=== PATIENT | female | born 1965 | race African-American/Black ===

== ENCOUNTER 2019-08-21 02:13 | Inpatient (IN) ==
[2019-08-21] MEDS ORDERED: ZOSYN 4.5 GM in NS 100 ML IV ONE (02:44)
[2019-08-21] MEDS ORDERED: NS 1,000 ML IV ONE ×4 (02:44→09:00)
[2019-08-21] MEDS ORDERED: MORPHINE IV ONE (02:44)
[2019-08-21] MEDS ORDERED: ZOFRAN IV ONE (02:44)
[2019-08-21 03:06] LABS: URINE SOURCE CATH
[2019-08-21 03:09] LABS: BILIRUBIN URINE NEGATIVE (NEGATIVE); BLOOD URINE SMALL (NEGATIVE); COLOR YELLOW; GLUCOSE URINE NEGATIVE (NEGATIVE); KETONE URINE TRACE mg/dL (NEGATIVE); LEUKOCYTES URINE SMALL (NEGATIVE); NITRITE URINE NEGATIVE (NEGATIVE); PH URINE 6.5; PROTEIN URINE 100 mg/dL (NEGATIVE); SP GRAVITY URINE 1.027; TURBIDITY URINE HAZY (CLEAR); UROBILINOGEN URINE 2 mg/dL (NORMAL)
--- NOTE | 2019-08-21 03:10 | PROVIDER DOCUMENTATION ---
HPI-Fever - General Chief Complaint: Weakness Stated Complaint: v/weakness Time Seen by Provider: 08/21/19 02:36 Source: patient Allergies/Adverse Reactions: Patient Allergies Allergy/AdvReac Type Severity Reaction Status Date / Time ibuprofen AdvReac HIVES Verified 01/10/17 07:13 NSAIDS (Non-Steroidal AdvReac HIVES Verified 01/10/17 07:13 Anti-Inflamma Home Medications: Home Medication List Medication Instructions Recorded Confirmed Last Taken Type Lisinopril [Zestril] 10 mg PO DAILY #30 tablet 11/28/16 08/21/19 01/09/17 08:00 Rx Sulfamethoxazole/Trimethoprim 1 each PO Q12HR #10 tablet 01/10/17 08/21/19 Unknown Rx [Bactrim Ds Tablet] Carisoprodol [Soma] 1 tab PO BID 01/20/17 08/21/19 Unknown History Hydrocodone/Acetaminophen [Lortab 1 tab PO DIRECTED PRN 01/20/17 08/21/19 Unknown History 7.5-325 mg Tablet] - History of Present Illness-Fever Nature of Presenting Problem: Patient complains of gradual onset of fever, chills, malaise, abdominal pain and vomiting for 3 days. Symptoms begine in ER 3 days ago when she was sitting with her who was admitted for sepsis at that time. States continued to worsen since then. No has become some weak she has nearly passed out. No diarrhea. No vomiting blood or blood in stools. No cough. Slight sore throat Fever Severity/Quality: reports: greater than 100.5 F Onset/Duration: reports: gradual, 3 days ago Timing: reports: still present, constant, getting worse Severity: reports: moderate Context: reports: none, other ( is in ICU at [facility] with Sepsis.). denies: decreased mental status Recent Illness?: reports: none Fever Therapy COMMUNITY LIAISON OFFICER: Initiated none Cognitive Baseline: alert, oriented x3 Modifying Factors: improves with: rest. worse with: movement, vomiting Associated Symptoms: reports: diaphoresis, dizziness, fever/chills, loss of appetite, malaise, muscle aches, nausea, vomiting, weakness, trouble walking. denies: chest pain, headaches, sinus congestion/drainage, seizure, sensory/motor loss, swelling/mass in abdomen, syncope Similar Symptoms Previously?: No Recently seen or treated by another doctor?: No - Glascow Coma Score Best Eye Response ([place]): (4) open spontaneously Best Verbal Response ([place]): (5) oriented Best Motor Response ([place]): (6) obeys commands Review of Systems - Adult - REVIEW OF SYSTEMS - ADULT Constitutional: reports: see HPI, chills, fever, fatique. denies: night sweats, weight gain, weight loss Eyes: reports: no symptoms reported Ears, Nose, Mouth & Throat: reports: no symptoms reported Cardiovascular: reports: no symptoms reported Respiratory: reports: see HPI, cough, dyspnea on exertion, shortness of breath (mild). denies: chronic cough, excessive sputum production, hemoptysis, pleurisy, wheezing Gastrointestinal: reports: see HPI, abdominal pain, nausea, poor appetite, vomiting. denies: hematemesis, constipation, diarrhea, difficulty swallowing, frequent heartburn, rectal bleeding Genitourinary: reports: no symptoms reported Musculoskeletal: reports: no symptoms reported Integumentary: reports: no symptoms reported Neurological: reports: no symptoms reported Psychiatric: reports: no symptoms reported Endocrine: reports: no symptoms reported Hematologic/Lymphatic: reports: no symptoms reported Allergic/Immunologic: reports: no symptoms reported All Other Systems: Reviewed and Negative Past History - Adult - PAST MEDICAL HISTORY-ADULT Review of Records: reports: Old Records Reviewed, Nursing Assessment Review, Medications Reviewed, Social history reviewed & non-contributory. Major Childhood Illnesses: reports: denies history Cardiovascular: reports: HTN Respiratory: reports: denies history Gastrointestinal: reports: denies history Obstetrical/Gynecological: reports: denies history Genitourinary: reports: denies history Musculoskeletal: reports: denies history Neurological: reports: denies history Endocrine/Immune: reports: denies history Other Conditions: reports: denies history - PRIOR SURGERIES/PROCEDURES Surgical/Procedure History: reports: reviewed, not pertinent - IMMUNIZATION STATUS Childhood Immunizations: See Nurse Assessment Flu Vaccine: See Nurse Assessment - FAMILY HISTORY Family History: reviewed, not pertinent, other ( has sepsis now) - SOCIAL HISTORY Smoking: cigarettes, less than 1 pack/day Substance Use: none/never Alcohol Use Frequency: 5-6 times a week Number of drinks per typical drinking period:: 3-4 drinks Living Situation: family Physical Exam-General - PHYSICAL EXAM-ADULT Initial Vital Signs Reviewed: Yes (Afebrile, sl tachycardic, sl tachypneic, hypotensive, ill appearing) - CONSTITUTIONAL General Appearance: alert, no apparent distress, lethargic. negative: appears well - EYES Eyes: PERRL/EOMI, pink conjunctivae - HEAD, EARS, NOSE, MOUTH & THROAT HENMT: normocephalic/atraumatic, TMs normal. negative: moist mucous membranes (dry), hearing deficit - NECK Neck: non-tender, full range of motion, supple, normal inspection - RESPIRATORY Respiratory: chest non-tender, lungs clear, normal breath sounds, no pleuratic chest pain, no respiratory distress, no accessory muscle use - CARDIOVASCULAR Cardiovascular: normal peripheral pulses, regular rate, rhythm, no edema, no gallop, no JVD, no murmur - GASTROINTESTINAL (ABDOMEN) Abdominal Exam: soft, no pulsatile mass, abnormal bowel sounds (hypoactive), tenderness (diffuse, especially bilateral flanks). negative: guarding, rigid, mass, McBurney's point tenderness, Benoit's sign, Rovsing's sign - LYMPHATIC Lymphatic: no adenopathy - MUSCULOSKELETAL Back Exam: normal inspection, decreased range of motion Extremity: normal range of motion, non-tender, normal gait, pedal edema (1+ bilATERAL) - SKIN Integumentary: normal color, normal turgor, warm/dry - NEUROLOGIC Neurologic: fire ranger II-XII nml as tested, grossly normal, no motor/sensory deficits, motor weakness (generally weak) - PSYCHIATRIC Psych/Mental Status: normal mood/affect, normal thought content, normal thought process, oriented x 3 Progress - PLAN OF CARE/RESULTS Progress/Plan/Lab Results: Vital Signs - 8 hr 08/21/19 02:17 08/21/19 02:49 08/21/19 04:27 Temperature 97.7 F Pulse Rate 97 H 85 79 Respiratory Rate 20 17 18 Blood Pressure 92/60 105/72 91/61 O2 Sat by Pulse Oximetry 98 100 Laboratory Results - last 24 hr 08/21/19 08/21/19 08/21/19 02:40 02:40 02:40 WBC 16.91 H RBC 3.98 L Hgb 12.4 Hct 36.8 L MCV 92.5 MCH 31.2 H MCHC 33.7 RDW Std Deviation 12.7 Plt Count 295 MPV 10.6 H Immature Gran % (Auto) 0.4 Neut % (Auto) 69.5 Lymph % (Auto) 19.8 L [place] % (Auto) 9.3 Eos % (Auto) 0.3 Baso % (Auto) 0.7 Immature Gran # (Auto) 0.07 H Neut # (Auto) 11.77 H Lymph # (Auto) 3.34 [place] # (Auto) 1.57 H Eos # (Auto) 0.05 Baso # (Auto) 0.11 Segmented Neutrophils 73 Band Neutrophils 1 Lymphocytes 19 L Monocytes 4 Atypical Lymphocytes 3.0 Large Platelets OCCASIONAL Poikilocytosis OCCASIONAL Stomatocytes OCCASIONAL PT 14.7 INR 1.09 PTT (Actin FS) 30.4 Sodium 134 L Potassium 3.0 L Chloride 92 L Carbon Dioxide 26 Anion Gap 17 BUN 11 Creatinine 1.0 H Estimated GFR/1.73 m2 58 BUN/Creatinine Ratio 11 Glucose 129 H Calculated Osmolality 269 Calcium 9.1 Magnesium 2.6 Total Bilirubin 0.30 AST 18 ALT 10 Alkaline Phosphatase 123 H Creatine Kinase 130 Troponin T High Sens Qsu-[id number]-Jtvgtrrnnqo Pept Total Protein 7.4 Albumin 3.6 Globulin 4.0 Albumin/Globulin Ratio 1.0 Lipase 36 Plasma Lactate Urine Source Urine Color Urine Turbidity Urine pH Ur Specific [place] Urine Protein Ur Glucose (Stick) Ur Ketones (Stick) Urine Blood Urine Nitrite Urine Bilirubin Urobilinogen Dipstick Urine Leukocytes Urine WBC (Auto) Urine RBC (Auto) U Epithel Cells (Auto) Urine Bacteria (Auto) Urine Crystals Small Round Cells Urine Casts Urine Yeast-like Cells Plasma/Serum Ethyl Alc Influenza A (Rapid) Influenza B (Rapid) 08/21/19 08/21/19 08/21/19 02:40 02:40 02:40 WBC RBC Hgb Hct MCV MCH MCHC RDW Std Deviation Plt Count MPV Immature Gran % (Auto) Neut % (Auto) Lymph % (Auto) [place] % (Auto) Eos % (Auto) Baso % (Auto) Immature Gran # (Auto) Neut # (Auto) Lymph # (Auto) [place] # (Auto) Eos # (Auto) Baso # (Auto) Segmented Neutrophils Band Neutrophils Lymphocytes Monocytes Atypical Lymphocytes Large Platelets Poikilocytosis Stomatocytes PT INR PTT (Actin FS) Sodium Potassium Chloride Carbon Dioxide Anion Gap BUN Creatinine Estimated GFR/1.73 m2 BUN/Creatinine Ratio Glucose Calculated Osmolality Calcium Magnesium Total Bilirubin AST ALT Alkaline Phosphatase Creatine Kinase Troponin T High Sens < 6 Akp-L-Pumhgzhhfoi Pept 176 Total Protein Albumin Globulin Albumin/Globulin Ratio Lipase Plasma Lactate Urine Source Urine Color Urine Turbidity Urine pH Ur Specific [place] Urine Protein Ur Glucose (Stick) Ur Ketones (Stick) Urine Blood Urine Nitrite Urine Bilirubin Urobilinogen Dipstick Urine Leukocytes Urine WBC (Auto) Urine RBC (Auto) U Epithel Cells (Auto) Urine Bacteria (Auto) Urine Crystals Small Round Cells Urine Casts Urine Yeast-like Cells Plasma/Serum Ethyl Alc Influenza A (Rapid) Influenza B (Rapid) 08/21/19 08/21/19 08/21/19 02:40 02:55 04:22 WBC RBC Hgb Hct MCV MCH MCHC RDW Std Deviation Plt Count MPV Immature Gran % (Auto) Neut % (Auto) Lymph % (Auto) [place] % (Auto) Eos % (Auto) Baso % (Auto) Immature Gran # (Auto) Neut # (Auto) Lymph # (Auto) [place] # (Auto) Eos # (Auto) Baso # (Auto) Segmented Neutrophils Band Neutrophils Lymphocytes Monocytes Atypical Lymphocytes Large Platelets Poikilocytosis Stomatocytes PT INR PTT (Actin FS) Sodium Potassium Chloride Carbon Dioxide Anion Gap BUN Creatinine Estimated GFR/1.73 m2 BUN/Creatinine Ratio Glucose Calculated Osmolality Calcium Magnesium Total Bilirubin AST ALT Alkaline Phosphatase Creatine Kinase Troponin T High Sens Ctw-B-Izfmycquavb Pept Total Protein Albumin Globulin Albumin/Globulin Ratio Lipase Plasma Lactate 0.9 Urine Source CATH Urine Color YELLOW Urine Turbidity HAZY Urine pH 6.5 Ur Specific [place] 1.027 Urine Protein 100 A Ur Glucose (Stick) NEGATIVE Ur Ketones (Stick) TRACE A Urine Blood SMALL A Urine Nitrite NEGATIVE Urine Bilirubin NEGATIVE Urobilinogen Dipstick 2 A Urine Leukocytes SMALL A Urine WBC (Auto) <10 Urine RBC (Auto) <10 U Epithel Cells (Auto) <10 Urine Bacteria (Auto) 4+ Urine Crystals NONE SEEN Small Round Cells RENAL PRESENT Urine Casts GRANULAR PRESENT Urine Yeast-like Cells NONE SEEN Plasma/Serum Ethyl Alc Influenza A (Rapid) NEGATIVE Influenza B (Rapid) NEGATIVE Orders Category Date Time Status Cardiac Monitoring DIRECTED Care 08/21/19 02:42 IV Insertion ORDERED Care 08/21/19 02:42 Completed Nursing- Obtain EKG once Care 08/21/19 02:43 CHEST-1 VIEW [RAD] Stat Exams 08/21/19 02:[address] ABD/PELVIS W/IV CONT ONLY [CT] Stat Exams 08/21/19 02:43 Taken ALCOHOL BLOOD Stat Lab 08/21/19 02:40 Completed BLOOD CULTURE [BLDCUL] Stat Lab 08/21/19 02:43 Ordered CBC WITH DIFF [HEME] Stat Lab 08/21/19 02:40 Completed CK PROFILE [SP CHEM] Stat Lab 08/21/19 02:40 Completed COMPREHENSIVE METABOLIC PANEL [CHEM] Stat Lab 08/21/19 02:[address] Stat Lab 08/21/19 04:22 Completed LACTATE, PLASMA [CHEM] Lab 08/21/19 05:45 Uncollected LACTATE, PLASMA [CHEM] Lab 08/21/19 08:45 Uncollected LACTATE, PLASMA [CHEM] Q3H Lab 08/21/19 02:40 Completed LIPASE [CHEM] Stat Lab 08/21/19 02:40 Completed MAGNESIUM [CHEM] Stat Lab 08/21/19 02:40 Completed PRO B-NATRIURETIC PEPTIDE Stat Lab 08/21/19 02:40 Completed PROTIME WITH INR [COAG] Stat Lab 08/21/19 02:40 Completed PTT [COAG] Stat Lab 08/21/19 02:40 Completed TROPONIN T HIGH SENSITIVITY Stat Lab 08/21/19 02:40 Completed URINALYSIS W/POSS RFLX CULT [URINALYSIS] Stat Lab 08/21/19 02:55 Completed URINE CULTURE [RM] Routine Lab 08/21/19 03:40 Ordered URINE MANUAL MICROSCOPIC [URINALYSIS] Stat Lab 08/21/19 02:55 Completed 0.9% Sodium Chloride Inj [Ns] 1,000 ml Med 08/21/19 02:44 Discontinued IV 999 mls/hr 0.9% Sodium Chloride Inj [Ns] 1,000 ml Med 08/21/19 02:44 Discontinued IV 999 mls/hr 0.9% Sodium Chloride Inj [Ns] 500 ml Med 08/21/19 04:39 Active IV 999 mls/hr Metronidazole 500 mg/Ns [Flagyl 500 mg/Ns] Med 08/21/19 04:30 Active 500 mg in 100 ml IV NOW Morphine Med 08/21/19 02:44 Discontinued 4 mg IV NOW ONE Ondansetron [Zofran] Med 08/21/19 02:44 Discontinued 4 mg IV NOW ONE Piperacillin/Tazobactam [Zosyn] 4.5 gm Med 08/21/19 02:44 Discontinued 0.9% Sodium Chloride Inj [Ns] 100 ml IV NOW Potassium Chloride 20 Meq/Swi Med 08/21/19 04:17 Active 20 meq in 100 ml IV ONCE Oxygen Device Stat Oth 08/21/19 02:42 Active EKG [EKG] Stat Ther 08/21/19 02:43 Draft Result Diagrams: 08/21/19 02:40 08/21/19 02:40 - REASSESSMENT Reassessment #1 Time Reassessed: 03:16 Status: unchanged (Checked medical records, still in ICU with hepatorenal syndrome and likely SBP, organism has not been isolated yet.) Reassessment #2 Time Reassessed: 04:37 Status: improving (States feels better after IVF bolus, morphine/zofran, zosyn and flagyl. Patient has sepsis although lactate is negative. Patient initially hypotensive, given 30ml/kg bolus. Given also morphine/zofran for pain and IV k-rider 20mEq for hypokalemia) - EKG 1 Time of EKG reading by physician:: 03:19 EKG Read and Signed by:: Jose Nath EKG Interpretation (*Must complete 3 of following elements*): Abnormal Rate: 89 Rhythm: NSR Ada: normal QRS: normal ST Wave: non-specific ST changes Comments: artifact present - XRAY 1 XRAY Study: Chest Impression: Abnormal (Poor inspiratory effort, normal cardiac silhouette, no obvious infiltrates, read by me at [id number]) - CT/MRI 1 CT Study: Angiogram Impression: Abnormal (Per [facility]: Inflammatory changes involving the sigmoid colon favorin diverticulitis with pericolonic abscess. Uterine fibroids. Bilateral complex ovarian cysts) - CONSULTS/PCP/HOSPITALIST Notification #1 *Consult/PCP/Hospitalist*: Maurice paged at [phone], [phone] Departure - Departure Date of Disposition Decision: 08/21/19 Time of Disposition Decision: 04:40 DIAGNOSIS: Severe sepsis, Hypokalemia Diverticulitis of intestine with perforation and abscess without bleeding Qualifiers: Diverticulitis site: large intestine Qualified Code(s): K57.20 - Diverticulitis of large intestine with perforation and abscess without bleeding Disposition: ADMITTED INPATIENT 09 Certified Medical Emergency: Emergent Condition: Fair Referrals and Follow-Ups: None,PCP [NON-STAFF PROVIDER] - - Critical Care Note This patient required my direct & personal management of CC.: Yes Total Time (mins): 45 Critical Care Statement: This patient required my direct personal management to treat or rule out processes, the absence of which, could potentiallly result in sudden, clinically significant life or limb threatening deterioration. Attestation - Physician/ TASHI Attestation Patient care was provided by Advanced Practice Provider:: No The physician spent face to face time with patient:: Yes Advanced Practice Provider documentation review:: Supervising physician onsite and consulted in the evaluation and care of this patient. The physician did have a face to face encounter with the patient.
[2019-08-21 03:11] LABS: BASO# 0.11 X1000 (0.0-0.2); BASO% 0.7 % (0.0-0.8); EOS# 0.05 X1000 (0.0-0.7); EOS% 0.3 % (0.0-10.0); HEMATOCRIT 36.8 % (37.0-47.0); HEMOGLOBIN 12.4 g/dL (12.0-16.0); IMM GRAN# 0.07 X1000 (0.0-0.04); IMM GRAN% 0.4 % (0.0-0.5); LYMPH# 3.34 X1000 (1.2-3.4); LYMPH% 19.8 % (20.5-51.1); MCH 31.2 PG (27-31); MCHC 33.7 g/dL (33-37); MCV 92.5 FL (81-99); MONO# 1.57 X1000 (0.11-0.59); MONO% 9.3 % (1.7-9.3); MPV 10.6 FL (7.4-10.4); NEUT# 11.77 X1000 (1.4-6.5); NEUT% 69.5 % (42.2-75.2); PLT 295 X1000 (130-400); RBC 3.98 XMIL (4.2-5.4); RDW 12.7 % (11.5-14.5); WBC 16.91 X1000 (4.8-10.8)
[2019-08-21 03:17] LABS: INR 1.09; PROTIME 14.7 Seconds (11.0-16.0)
[2019-08-21 03:18] LABS: PTT 30.4 Seconds (22.3-41.8)
[2019-08-21 03:21] LABS: ALBUMIN 3.6 g/dL (3.5-5.0); CALCIUM 9.1 mg/dL (8.8-10.2); MAGNESIUM 2.6 mg/dL (1.5-2.7); TOTAL BILIRUBIN 0.3 mg/dL (0.20-1.00); TOTAL PROTEIN 7.4 g/dL (6.3-8.3)
[2019-08-21 03:33] LABS: BANDS 1 % (0-1); LYMPHS 19 % (21-51); MONO 4 % (1-9); POIKILOCYTOSIS OCCASIONAL; SEGS 73 % (42-75)
[2019-08-21 03:34] LABS: LARGE PLATELETS OCCASIONAL; STOMATOCYTES OCCASIONAL
[2019-08-21 03:38] LABS: UR EPITHELIAL CELLS <10 /HPF (<10); URINE BACTERIA 4+ /HPF; URINE RBC <10 /HPF (<10); URINE WBC <10 /HPF (<10); URINE YEAST NONE SEEN
[2019-08-21 03:39] LABS: URINE CASTS GRANULAR PRESENT; URINE CRYSTALS NONE SEEN; URINE SMALL ROUND CELLS RENAL PRESENT
--- NOTE | 2019-08-21 04:11 | EKG Report ---
Test Performed on : 08/21/2019 02:36:25 AM Test Reason : weak Blood Pressure : / mmHG Vent. Rate : 089 BPM Atrial Rate : 089 BPM P-R Int : 128 ms QRS Dur : 084 ms QT Int : 346 ms P-R-T Axes : 074 019 006 degrees QTc Int : 420 ms Normal sinus rhythm. Nonspecific ST abnormality Abnormal ECG When compared with ECG of 07-SEP-2017 09:50, Nonspecific T wave abnormality, improved in Anterolateral leads Unconfirmed Result
[2019-08-21] MEDS ORDERED: POTASSIUM CHLORIDE 20 MEQ/SWI 20 MEQ/100 ML IVPB IV ONE (04:17)
[2019-08-21] MEDS ORDERED: FLAGYL 500 MG/NS 500 MG/100 ML IVPB IV ONE (04:30)
[2019-08-21] MEDS ORDERED: NS 500 ML IV ONE (04:39)
[2019-08-21 04:44] LABS: INFLUENZA A NEGATIVE (NEGATIVE); INFLUENZA B NEGATIVE (NEGATIVE)
[2019-08-21] MEDS ORDERED: ZOFRAN IV PRN (05:12)
[2019-08-21] MEDS ORDERED: TYLENOL PO PRN ×2 (05:12→08:09)
[2019-08-21] MEDS ORDERED: MORPHINE IV PRN (05:12)
--- NOTE | 2019-08-21 05:12 | SEPSIS: TISSUE PERFUSION ASSMT ---
Sepsis: Tissue Perfusion Assin - Physical Exam Assessment Date: 08/21/19 Time Assessment Initialized: 05:11 Vital Signs: Last Vital Signs Temp 97.7 F 08/21/19 02:17 Pulse 81 08/21/19 05:02 Resp 15 08/21/19 05:02 BP 108/69 08/21/19 05:02 Pulse Ox 98 08/21/19 05:02 Height 5 ft 6 in Weight 74.843 kg Lung Sounds:: lungs clear Heart Sounds:: Regular Capillary Refill Time: Less Than 2 Seconds Peripheral Pulse Evaluation:: radial (R): 2+, radial (L): 2+ Skin Exam:: pink, turgor good - Impression Impression:: Tissue Perfusion Adequate - Plan Plan:: See Orders (Admit to hospitlaist)
--- NOTE | 2019-08-21 07:46 | Diag Imaging Result Doc PS360 ---
EXAM: CT ABD/PELVIS W/IV CONT ONLY 08/21/2019 HISTORY: colitis TECHNIQUE: This exam was performed using automated exposure control, adjustment of mA or kV according to patient size, and/or use of iterative reconstruction technique. COMMENT: There are number of small pulmonary nodules in the right middle lobe. These were not demonstrated on the previous study of 01/10/2017 but were apparently demonstrated on 04/19/2013. There is also a nodule in the posterior costophrenic sulcus of the left lower lobe which was previously present. There are calcified nodes in the right hilum. There may be some small stones in the gallbladder. The gallbladder is not distended. The spleen and adrenal glands pancreas and kidneys are unremarkable. There is gas and stool as well as liquid contents in the colon. The small bowel is not distended. The aorta is not distended. There is no evidence of significant adenopathy. Pelvis: There is inflammation around the sigmoid colon and there is a large paracolic abscess posterior to the anterior loop of the sigmoid measuring 6.3 cm in AP dimension with an air-fluid level. The uterus is enlarged with multiple myometrial masses one of which is calcified and measures 5.7 cm in transverse dimension. The masses are generally smaller than on 01/10/2017 and the larger mass was not previously calcified. There are multiple ovarian follicles and cysts. The appendix is normal in appearance. There is no evidence of free pelvic fluid. There is a Monteiro catheter in the bladder. There are no acute bony abnormalities. IMPRESSION: 1. Sigmoid diverticulitis with abscess. 2. Fibroid uterus and bilateral ovarian cysts. Electronically signed by Juancarlos Paul 08/21/2019 7:43 AM
[2019-08-21] MEDS: FLAGYL 500 MG/NS 500 MG/100 ML IVPB IV SCH ×2 (08:13→14:06)
--- NOTE | 2019-08-21 08:20 | Diag Imaging Result Doc PS360 ---
EXAM: CHEST-1 VIEW 08/21/2019 HISTORY: weakness, sepsis TECHNIQUE: AP chest at 0406 COMMENT: The inspiration is less optimal than on 09/07/2017. Otherwise considering differences in technique there has been no significant change. IMPRESSION: Stable chest. Electronically signed by Juancarlos Paul 08/21/2019 8:17 AM
[2019-08-21] MEDS: NS 1,000 ML IV SCH ×2 (08:44→18:20)
[2019-08-21] MEDS ORDERED: PRINIVIL PO SCH (09:00)
[2019-08-21] MEDS ORDERED: ZOSYN 4.5 GM in NS 100 ML IV SCH (09:00)
--- NOTE | 2019-08-21 10:24 | HISTORY AND PHYSICAL ---
PRIMARY CARE PROVIDER: Dr. Garcia CHIEF COMPLAINT: Ms. Leila Garcia is a 54-year-old, -[place]onese female with a medical history of hypertension and chronic pain who states, on Wednesday, she started having some stomach pain, generalized, primarily in the left upper quadrant. She has been weak and no energy. Yesterday, she started having some nausea and vomiting. She states she still continues to have daily bowel movements. Her last one was yesterday morning. It was normal, brown, and soft. She denies any fever or chills. There is really no other complaints. However, with the complaints she came in with, she had an abdominal and pelvic CT which revealed that she has a sigmoid diverticulitis with abscess. It is a large pericolic abscess posterior to the anterior loop of the sigmoid, measuring 6.3 cm in dimension. She is being admitted, treated for diverticulitis, and we will get a consult in with the general surgery. PAST MEDICAL HISTORY: 1. Hypertension. 2. Chronic pain after a right leg fracture, old fracture. 3. 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 That is chronic for her. Normally, she states she wears corrective glasses that help. SURGICAL HISTORY: None. SOCIAL HISTORY: Less than a half pack per day smoker since the age of 15. She normally drinks 2 to 3 beers per day but the last 1 was 3 weeks ago. She smokes marijuana on special occasions with the last time being 4 weeks ago. She is from her , who is currently also admitted here in the ICU. She has one son. 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 FAMILY HISTORY: Mother at 58 from kidney failure. Father unknown and there are no siblings. ALLERGIES: Ibuprofen and NSAIDs cause hives. HOME MEDICATIONS: 1. Cascade 7.5 one tablet p.o. p.r.n. 2. Soma 250 mg p.o. twice a day. 3. Lisinopril 10 mg p.o. daily. REVIEW OF SYSTEMS: Fourteen point review of systems are complete and all were negative except for those mentioned above in the HPI. PHYSICAL EXAMINATION: VITAL SIGNS: Temperature 98.0 degrees, heart rate 73, respiratory rate 19, blood pressure 112/68, O2 saturation 99% on room air. GENERAL: Ms. Leila Garcia is a 54-year-old, -[place] female. She is in no acute distress. She is able answer questions appropriately. HEENT: Atraumatic, normocephalic. Pupils are equal and reactive. Extraocular movements intact. However, the left eye slightly deviates to the left, which is chronic for her. Mucous membranes are moist. NECK: Trachea midline. CARDIOVASCULAR: S1, S2. Regular rate and rhythm. No rubs, gallops, murmurs. Trace lower extremity edema. There are +2 dorsalis and radial pulses. Negative JVD or carotid bruits. PULMONARY: Clear to auscultate bilateral breath sounds. No accessory muscle use or work of breathing noted. GI: Soft. Tender in all 4 quadrants. Positive bowel sounds x4. EXTREMITIES: Moves all extremities equally. Full range of motion. NEUROLOGIC: A and O x3. Follows commands. Sensory is intact. SKIN: Warm, dry, intact. LABORATORY DATA: White blood cells 16,000, hemoglobin 12, hematocrit 36, platelet count 295,000. INR is 1.09, PTT is 30.4. Sodium 134, potassium 3.0, BUN 11, creatinine is 1.0, glucose 129, calcium 9.1, magnesium 2.6. Bilirubin 0.30, AST 18, ALT 10. CK 130, troponin less than 6. ProBNP 176. Albumin is 3.6, lactate x2 is 0.9 and 1.3. Urinalysis, 100 protein, trace ketones, small blood, 2 urobilinogen, small leukocytes, 4+ bacteria. Alcohol zero. Influenza A and B both negative. Blood cultures pending. Urine cultures pending. IMAGING: Chest x-ray, stable chest. Abdominal and pelvic CT, sigmoid diverticulitis with abscess and fibroid uterus with bilateral ovarian cysts. EKG, normal sinus rhythm, rate 89, QTc 420. ASSESSMENT AND PLAN: 1. Diverticulitis with an intra-abdominal abscess. General surgery is consulted. Flagyl and Zosyn have been started. Morphine for pain control. 2. Hypertension. Continue lisinopril. 3. Chronic pain. She has as-needed morphine. She is also on her scheduled Soma. 4. Fibroid uterus and bilateral ovarian cysts reported by abdominal CT, maybe can get set up as an outpatient later for gynecology. 5. Hypokalemia. She has received potassium supplementation. 6. Possible urinary tract infection but she is asymptomatic with this. No complaints of urinary symptoms. However, she is already on gram-negative coverage antibiotic. 7. Deep venous thrombosis prophylaxis. Sequential compression devices. Dictated by KAILA Yu for Joshua Yung MD cc: KAILA Yu MD
[2019-08-21] MEDS: ZOSYN 4.5 GM in NS 100 ML IV SCH ×3 (10:27→20:09)
[2019-08-21] MEDS: MORPHINE IV PRN ×5 (10:28→20:11)
[2019-08-21] MEDS ORDERED: FLAGYL 500 MG/NS 500 MG/100 ML IVPB IV SCH (11:00)
--- NOTE | 2019-08-21 11:30 | GENERAL SURGERY CONSULTATION ---
DATE: 08/21/2019 REASON FOR CONSULTATION: Diverticular abscess. CHIEF COMPLAINT: Abdominal pain. HISTORY OF PRESENT ILLNESS: This is a 54-year-old female who has a history of hypertension, smoking, and hyperlipidemia, I believe, who developed abdominal pain in the lower left quadrant of her abdomen on Wednesday. She came to the ER. CT scan was obtained that showed a 6 cm pericolonic diverticular abscess in the sigmoid colon. She has had no prior episodes. She has never had a colonoscopy. MEDICAL HISTORY: As noted in her HPI. SURGICAL HISTORY: She denies any abdominal operations. SOCIAL HISTORY: She does smoke 5-6 cigarettes a day. No alcohol. FAMILY HISTORY: Reviewed and negative for colorectal cancer. REVIEW OF SYSTEMS: A 10-point review of systems was performed and negative other than what is mentioned in the HPI. PHYSICAL EXAMINATION: Vital Signs: She is afebrile. Pulse is in the 70s. Blood pressure 112/68. Oxygen saturation 99% on room air. General: She is alert, in no acute distress. HEENT: There is no scleral icterus. No cervical mass. Cardiovascular: Normal rate. Pulmonary: No increased work of breathing. Abdomen: Soft. She is tender in the lower quadrants but no peritonitis. Integument: Warm and dry without jaundice. Psychiatric: Appropriate affect. Neurologic: No gross deficits. Peripheral Vascular: No lower extremity edema. Lymphatic: No cervical adenopathy. LABORATORY DATA: White count 16, hematocrit 36, platelets 295,000. Creatinine is 1.0. Bilirubin is normal. Lipase and lactate are normal. The urinalysis shows some blood and small leukocytes. Influenza A and B are negative. I reviewed her CT scan with findings as noted in her HPI. ASSESSMENT AND PLAN: This is a 54-year-old female with a diverticular abscess. This is her first episode of diverticulitis. Based off the CT scan, it is somewhat posterior. I do not think it is amenable to percutaneous drainage but I do not see any free air or free fluid and her abdominal exam is without peritonitis. We will treat with antibiotics and bowel rest, and monitor here over the next couple of days. She may also require an operation but we will monitor her for now. cc: Dorian Argueta MD
[2019-08-21] MEDS: ZOFRAN IV PRN ×2 (11:32→20:11)
--- NOTE | 2019-08-21 17:59 | HISTORY AND PHYSICAL ---
ADDENDUM: I have seen and examined Ms. Garcia today. She refers to have presented early on because of abdominal pain and generalized weakness. She also described what seems to have been dizziness upon standing. Upon presenting, she was evaluated and was found to be hypotensive with a blood pressure of 92/60 in somebody who is normally hypertensive, on lisinopril. Upon presentation imaging studies of her chest were unremarkable. However, the CT scan of the abdomen seems to suggest sigmoid diverticulitis with abscess and some fibroid uterus and bilateral ovarian cyst. She has been admitted for medical management. PHYSICAL EXAMINATION: ABDOMEN: Physical exam is positive to mainly the abdomen which is remarkably tender with some guarding, but I did not feel any rebound. Bowel sounds are present but remarkably reduced. TORPEDO SHOOTER: Patient is awake, alert, and oriented. There are no other abnormal findings on physical exam. LABORATORY DATA: Has also been reviewed. She has leukocytosis, predominantly neutrophilic. Her sodium is slightly low. Creatinine is 1.0. Rest of the chemistry is unremarkable. The patient's flu was negative. ASSESSMENT: 1. Hypotensive on presentation, presumably septic shock on background of blood pressure medications. The patient was fluid resuscitated. She is on IV antimicrobial therapy. 2. Diverticulitis with intra-abdominal abscess. Patient has been evaluated by surgery. At this point, they recommend to continue medical management. We are going to consult Infectious Disease. The patient is currently on Zosyn. I have discontinued the metronidazole since Zosyn will cover anaerobes as well. 3. Uterine fibroids with bilateral ovarian cysts. Patient has been advised to follow up with EXECUTIVE KITCHEN MANAGER after discharge. 4. Hypertension. I have withheld her blood pressure medication (lisinopril) because she presented hypotensive and her recent blood pressure readings have been on the lower end of normal. Please refer to the details of the history and physical that has been dictated by the ESTATE ADMINISTRATOR in the chart. I have reviewed the plan with her. I have also reviewed my findings and the plan with Ms. Garcia. cc: Joshua Yung MD [facility]
[2019-08-22] MEDS ORDERED: NS 500 ML IV ONE (00:25)
[2019-08-22] MEDS ORDERED: VANCOMYCIN IV PER PHARMACY MISC SCH (00:30)
[2019-08-22] MEDS ORDERED: VANCOMYCIN 2,050 MG in NS 500 ML IV ONE (01:00)
[2019-08-22] MEDS: NS 1,000 ML IV SCH ×3 (01:00→23:26)
[2019-08-22] MEDS: ZOSYN 4.5 GM in NS 100 ML IV SCH ×4 (05:03→23:24)
[2019-08-22] MEDS: PRILOSEC PO SCH (06:20)
[2019-08-22 07:49] LABS: BASO# 0.12 X1000 (0.0-0.2); BASO% 0.9 % (0.0-0.8); EOS% 0.7 % (0.0-10.0); HEMATOCRIT 32.9 % (37.0-47.0); HEMOGLOBIN 10.8 g/dL (12.0-16.0); IMM GRAN# 0.05 X1000 (0.0-0.04); IMM GRAN% 0.4 % (0.0-0.5); LYMPH% 15.2 % (20.5-51.1); MCH 31.4 PG (27-31); MCHC 32.8 g/dL (33-37); MCV 95.6 FL (81-99); MONO# 1.08 X1000 (0.11-0.59); MONO% 7.8 % (1.7-9.3); MPV 10.3 FL (7.4-10.4); NEUT# 10.36 X1000 (1.4-6.5); PLT 257 X1000 (130-400); RBC 3.44 XMIL (4.2-5.4); RDW 13.1 % (11.5-14.5); WBC 13.81 X1000 (4.8-10.8)
--- NOTE | 2019-08-22 08:03 | INFECTIOUS DISEASE CONSULT REP ---
DATE: 08/22/2019 CONCLUSION: The patient has diverticulitis with a pericolic abscess. She also may have a urinary tract infection. Finally, she has 1 of 2 blood cultures growing a gram-positive coccus. This could be a pathogen or a contaminant. RECOMMENDATIONS: I agree with treating the patient with vancomycin and Zosyn pending further culture results. Some of the side effects of the antibiotics including rash, diarrhea, renal toxicity, and ototoxicity have been explained to the patient, who agrees with treatment. DISCUSSION: The patient, approximately 5 days ago, developed abdominal pain, weakness, fever, nausea, and vomiting. She has been admitted to the hospital. Her CBC shows a white count of 16,910, hemoglobin 12.4, and platelet count 295,000. Creatinine is 1.0. GFR is 58. Liver function studies are normal. Urinalysis showed bacteria but no white cells. Influenza screen was negative. One out of two blood cultures is growing a gram-positive coccus. Urine culture is pending. CT scan showed diverticulitis with a pericolic abscess. HIDE MILL MAN HISTORY: She is a 1, para 1, AB 0. On CT scan, it was noted she had fibroids. REVIEW OF SYSTEMS: Eyes and Ears: She has good hearing and vision. Neck: No stiffness. Respiratory: No cough or shortness of breath. Cardiac: No chest pain or palpitations. GI: See present illness. : No dysuria or flank pain. Neurologic: No seizures. No loss of motor or sensory function. PREVIOUS HOSPITALIZATIONS AND OPERATIONS: The patient has had a labor and delivery. MEDICAL DISEASES: Positive for hypertension. Negative for diabetes. INFECTIOUS DISEASE HISTORY: Negative for pneumonia and urinary tract infection. FAMILY HISTORY: Positive for diabetes mellitus and hypertension. SOCIAL HISTORY: The patient lives in [place]. She is from her . She is retired from working in a restaurant. ALLERGIES: Her chart lists allergies to ibuprofen and nonsteroidal anti-inflammatory medications. MEDICATIONS TAKEN AT HOME: Include Soma, hydrocodone, lisinopril, and Septra. HABITS: The patient smokes cigarettes, drinks alcoholic beverages, and uses marijuana. PHYSICAL EXAMINATION: Vital Signs: Temperature is 98.7 degrees, pulse 78, respirations 16, blood pressure 94/54. The patient is 5 feet 6 inches tall and weighs 165 pounds. General: This is an ill-appearing, obese, middle-aged female. She is complaining of having a lot of abdominal pain. Head, Eyes, Ears, Nose, and Throat: She can hear my spoken words and see near objects. There is no white coating on her tongue. Neck: No meningismus. Lungs: Clear to auscultation. Cardiovascular: Heart rate is regular. Abdomen: Soft but tender. Bowel sounds were present. Neurologic: The patient is awake. She can move her extremities. There is no tremor. Her memory as regarding her medical history was intact. Integument: No rash noted. Thank you for the consult. cc: Juancarlos Banerjee MD
[2019-08-22 08:39] LABS: AGAP 12; ALB/GLOB RATIO 0.6; ALBUMIN 2.5 g/dL (3.5-5.0); ALKALINE PHOSPHATASE 122 U/L (32-104); BUN 6 mg/dL (8-22); CALCIUM 8.1 mg/dL (8.8-10.2); CHLORIDE 106 mmol/L (98-107); COSMO 277; CREATININE 0.9 mg/dL (0.5-0.9); ESTIMATED GFR > 60; GLUCOSE 105 mg/dL (70-104); GOT 15 U/L (10-30); GPT 7 U/L (10-36); MAGNESIUM 2.3 mg/dL (1.5-2.7); POTASSIUM 3.4 mmol/L (3.5-5.1); SODIUM 140 mmol/L (136-145); TCO2 22 mmol/L (25-35); TOTAL BILIRUBIN 0.23 mg/dL (0.20-1.00); TOTAL PROTEIN 6.4 g/dL (6.3-8.3)
[2019-08-22 09:02] LABS: BANDS 2 % (0-1); LYMPHS 18 % (21-51); MONO 6 % (1-9); SEGS 72 % (42-75)
--- NOTE | 2019-08-22 13:46 | GENERAL SURGERY PROGRESS NOTE ---
DATE: 08/22/2019 SUBJECTIVE: She is still having some lower abdominal pain. No fevers. No tachycardia. OBJECTIVE: Vital Signs: Blood pressure 106/65. General: She is alert. Cardiovascular: Normal rate. Abdomen: Soft, she is tender in the lower quadrants but no peritonitis. LABORATORY DATA: White count down to 13, hematocrit 32, creatinine 0.9. ASSESSMENT AND PLAN: This is a 54-year-old female with diverticular abscess. Her white count is improving. She remains afebrile. She has continued to have pain. I would like to see this get better in the next 24 hours. Otherwise, surgical intervention may become more of the forefront. She is on appropriate antibiotics. We will continue minimal clear liquids providing bowel rest and will follow along. cc: Dorian Argueta MD
--- NOTE | 2019-08-22 15:26 | PROGRESS NOTE ---
DATE: 08/22/2019 SUBJECTIVE: This morning Ms. Garcia continues to have remarkable pain in the abdomen. Otherwise, she denies any vomiting. OBJECTIVE: Vital signs: Blood pressure 106/65, pulse of 92, respirations 14, and temperature 98 degrees. Patient is saturating 99% on room air. General: Ms. Garcia is a 54-year-old female. She is in bed in no cardiopulmonary distress. HEENT: Mucosa is pink and moist. Anicteric. Acyanotic. Neck: Supple. Chest: Good air entry bilaterally. There was no crepitations. No rhonchi. Cardiovascular: Regular rate and rhythm. Abdomen: Soft. It is remarkably tender almost everywhere with some guarding. No rebound. Bowel sounds present. JOB FORWARDER: Patient is awake, alert, and oriented. There is no focal deficit. LABORATORY DATA: WBC is down to 13.81, hemoglobin is 10.8, platelet count of 257,000. Chemistry is also reviewed. Potassium is 3.4. Rest of chemistry is for the most part unremarkable. So far one of the blood cultures is showing gram-positive cocci. The other one has not grown anything. Urine culture has no growth. ASSESSMENT: 1. Hypotension on presentation presumably sepsis induced hypotension on background of blood pressure medicines. The patient has been resuscitated with fluid, did not need any pressors. She is on IV antibiotics. 2. A complicated sigmoid diverticulitis with abscess formation. The patient is on antimicrobial coverage. ID and Surgery on board. 3. Uterine fibroid with bilateral ovarian cyst. 4. Hypertension controlled. PLAN: In general, I think Ms. Gracia remains fairly the same. Clinically, still hurting in her abdomen with some guarding when you are palpating. White cell count, however, is coming down, and she is not febrile. She is not tachypneic. Blood pressure has improved. We will continue with the current antimicrobial coverage, and follow up clinically and also with the recommendations of the other subspecialties. cc: Joshua Yung MD
[2019-08-23] MEDS ORDERED: VANCOMYCIN 1,650 MG in NS 250 ML IV SCH (01:00)
[2019-08-23] MEDS: ZOSYN 4.5 GM in NS 100 ML IV SCH ×4 (05:20→22:40)
[2019-08-23] MEDS: PRILOSEC PO SCH ×2 (05:21→06:00)
[2019-08-23 07:59] LABS: BASO# 0.07 X1000 (0.0-0.2); BASO% 0.5 % (0.0-0.8); EOS# 0.05 X1000 (0.0-0.7); EOS% 0.3 % (0.0-10.0); HEMATOCRIT 34.6 % (37.0-47.0); HEMOGLOBIN 11.2 g/dL (12.0-16.0); IMM GRAN# 0.06 X1000 (0.0-0.04); IMM GRAN% 0.4 % (0.0-0.5); LYMPH# 2.15 X1000 (1.2-3.4); LYMPH% 14.2 % (20.5-51.1); MCH 30.8 PG (27-31); MCHC 32.4 g/dL (33-37); MCV 95.1 FL (81-99); MONO# 1.32 X1000 (0.11-0.59); MONO% 8.7 % (1.7-9.3); NEUT# 11.49 X1000 (1.4-6.5); NEUT% 75.9 % (42.2-75.2); PLT 279 X1000 (130-400); RBC 3.64 XMIL (4.2-5.4); RDW 13.2 % (11.5-14.5); WBC 15.14 X1000 (4.8-10.8)
[2019-08-23 08:05] LABS: ALB/GLOB RATIO 0.6; ALBUMIN 2.5 g/dL (3.5-5.0); CALCIUM 8.3 mg/dL (8.8-10.2); CREATININE 1.4 mg/dL (0.5-0.9); MAGNESIUM 2.3 mg/dL (1.5-2.7); POTASSIUM 3.2 mmol/L (3.5-5.1); TOTAL BILIRUBIN 0.3 mg/dL (0.20-1.00); TOTAL PROTEIN 6.5 g/dL (6.3-8.3)
[2019-08-23 08:42] LABS: BANDS 2 % (0-1); LYMPHS 8 % (21-51); MONO 12 % (1-9); SEGS 78 % (42-75)
[2019-08-23] MEDS: NS 1,000 ML IV SCH ×3 (11:09→22:40)
[2019-08-23] MEDS: MORPHINE IV PRN ×3 (11:56→20:53)
--- NOTE | 2019-08-23 14:37 | INFECTIOUS DISEASE PROGRESS NO ---
DATE: 08/23/2019 PRESENT ILLNESS: The patient has diverticulitis with a pericolic abscess. The patient has 1 of 2 blood cultures positive for gram-positive coccus. The organism could be a Streptococcus or Enterococcus and I think most likely it would be a pathogen. However, it could be a contaminant also. I initially thought the patient had a urinary tract infection, but her culture is negative, which makes that unlikely that she does have a urinary tract infection. MEDICATIONS: The patient is receiving Zosyn. This is day 2 of treatment with Zosyn. PHYSICAL EXAMINATION: Vital Signs: Temperature is 98.2 degrees, pulse 86, respirations 18, blood pressure is 124/54. General: This is a ill-appearing middle-aged female. She had does seem to be having a lot of abdominal pain. Head/eyes/ears/nose/throat: She can hear my spoken words and see near objects. I did not see any white patches in her mouth. Neck: No pain with movement. Lungs: Clear to auscultation. Cardiovascular: Regular heart rate. Abdomen: Soft, but tender. Neurologic: Patient is alert. She can move her extremities. There is no tremor. LAB AND X-RAY: [place] [address], hemoglobin 11.2, and platelet count 279,000. Creatinine is 1.4. GFR is 48. Liver function studies are normal. 1/2 blood cultures is growing gram-positive coccus, which could be Streptococcus or Enterococcus. Urine cultures negative. ASSESSMENT AND PLAN: The patient has diverticulitis with a pericolic abscess. My plan is to continue with Zosyn. Dr. Argueta is determining when and if the patient needs surgery. COMORBIDITIES: The patient does smoke cigarettes and drinks alcoholic beverages and uses marijuana. cc: Juancarlos Banerjee MD
--- NOTE | 2019-08-23 14:45 | PROGRESS NOTE ---
DATE: 08/23/2019 SUBJECTIVE: Today, Ms. Garcia refers to be hurting even more than days before. She was calling and yelling out early on per the nurse's account. When I came to evaluate her she did tell me she has been in excruciating pain throughout late yesterday till this morning. OBJECTIVE: Vital signs: Blood pressure is 124/54, pulse of 86, respiration is 18, temperature 98.2 degrees. General: Ms. Garcia is a 54-year-old female. She is in bed. No cardiopulmonary distress. Mucosa is pink and moist. Anicteric. Acyanotic. Neck: Supple. Chest: Good air entry bilaterally. There were no crepitations, no rhonchi. There was not any accessory muscle use. Cardiovascular: Regular rate and rhythm. No murmurs, no rubs, no gallops. Gastrointestinal: Abdomen is soft, minimally distended. It is tender everywhere with guarding and some rebound on palpation. Bowel sounds present. WETLAND SCIENTIST: Patient is awake, alert, oriented. There is no focal deficit. LABORATORY DATA: WBC is up to 15.14, hemoglobin is 11.2, platelet count of 279,000, only 2% of bands on the peripheral smear. Chemistry is also reviewed. Sodium is 142, potassium is 3.2, chloride 108, creatinine is up to 1.4. CURRENT MEDICATIONS: Have all been reviewed. LABORATORY DATA: So far, blood culture 1/2 is gram-positive cocci. The other 1 is negative. Urine culture is negative. ASSESSMENT: 1. Hypotension on presentation secondary to sepsis induced hypotension on background of blood pressure medications. The patient has been fluid resuscitated. Blood pressure is now normalized. She did not need any pressor. 2. Complicated sigmoid diverticulitis with abscess formation associated with peritoneal reaction. Ms. Garcia is showing signs of peritonitis this morning. I am going to get a repeat CT scan of the abdomen and will also wait for surgery to evaluate her. I think Ms. Garcia has been on enough IV antibiotics for some improvement to have occurred. However she seems to be actually getting worse and I am afraid she is going to be needing surgery. 3. Uterine fibroid with bilateral ovarian cyst noted, patient will need to follow up with WINDOW CLERK at a later date. 4. History of hypertension, currently controlled. PLAN: So, in general, I think Ms. Garcia is fairly stable. However, I do not think she has shown a lot of therapeutic response to the current antimicrobial therapy. I have ordered a repeat CT scan on the abdomen to follow up on the findings and we will wait on surgery evaluation today. cc: Joshua Yung MD
--- NOTE | 2019-08-23 15:01 | Diag Imaging Result Doc PS360 ---
EXAM: CT ABDOMEN/PELVIS W/O CONTRAST INDICATION: worsening abdomen pain. Hx sigmoid diverticulitis TECHNIQUE: This exam was performed using automated exposure control, adjustment of mA or kV according to patient size, and/or use of iterative reconstruction technique. COMPARISON: 08/21/2019 FINDINGS: There is subsegmental atelectasis and interstitial infiltrate at both lung bases suggesting edema. There are trace bilateral pleural effusions. The liver, gallbladder, spleen, pancreas, adrenal glands, kidneys, and urinary bladder are grossly unremarkable. Sigmoid colonic diverticulitis complicated by a pericolonic abscess is again noted. The abscess measures modestly larger than the previous study at 7.4 x 5.6 cm axially (6.3 x 4.9 cm previously). There is no evidence of bowel obstruction. The GI tract is grossly stable, otherwise, as compared to the previous CT given the limitations of an unenhanced study. The large fibroid uterus described on the previous study is again identified. IMPRESSION: 1.Interval modest increase in size of the pericolonic abscess as compared to the previous study. 2.Development of mild edema and atelectasis at the lung bases and trace effusions. Electronically signed by Cuate Fisher 08/23/2019 2:58 PM
--- NOTE | 2019-08-23 20:19 | GENERAL SURGERY PROGRESS NOTE ---
DATE: 08/23/2019 SUBJECTIVE: She states she is still having lower abdominal pain. Not much worse, not much better. No fevers. She is voiding in a bedside commode. She apparently had a Monteiro catheter placed that she removed. OBJECTIVE: General: She is alert. Cardiovascular: Normal rate. Pulmonary: No increased work of breathing. Abdomen: Soft. It is somewhat tender in her lower quadrant, not significantly distended. LABORATORIES: I reviewed her labs. White count is up to 15, hematocrit is slightly more concentrated at 34 as well. Platelets 279,000. Creatinine is up to 1.4. Potassium low at 3.2. ASSESSMENT AND PLAN: This is a 54-year-old female with a diverticular abscess. She has persistent pain, leukocytosis, despite now almost 72 hours of antibiotics. I have recommended sigmoid colectomy with likely end-colostomy based off the degree of inflammation and contamination. We discussed risk of bleeding, infection, possibility of a colostomy or even a temporary ileostomy and the need for further takedown in the future. She understands all this and consents. We will keep her on antibiotics, make her n.p.o. at midnight. She has been really on clear liquids, so we will not do much of a prep tonight as I worry about her ability to tolerate this. Her creatinine is up slightly. She seems slightly more concentrated on her labs. As such, I have increased her fluids to 150 mL to hydrate her in anticipation of surgery tomorrow. We will follow along. Repeat her labs in the morning. cc: Dorian Argueta MD
[2019-08-24] MEDS: NS 1,000 ML IV SCH ×2 (06:07→09:57)
[2019-08-24] MEDS: ZOSYN 4.5 GM in NS 100 ML IV SCH ×2 (06:07→12:26)
[2019-08-24] MEDS: PRILOSEC PO SCH (06:35)
[2019-08-24] MEDS ORDERED: VANCOMYCIN 1,500 MG in NS 250 ML IV SCH (08:00)
[2019-08-24 08:06] LABS: BASO# 0.19 X1000 (0.0-0.2); BASO% 1.2 % (0.0-0.8); EOS# 0.04 X1000 (0.0-0.7); EOS% 0.3 % (0.0-10.0); HEMATOCRIT 33.6 % (37.0-47.0); HEMOGLOBIN 11.1 g/dL (12.0-16.0); IMM GRAN% 0.6 % (0.0-0.5); LYMPH# 2.43 X1000 (1.2-3.4); LYMPH% 15.3 % (20.5-51.1); MCH 31.2 PG (27-31); MCV 94.4 FL (81-99); MONO# 1.45 X1000 (0.11-0.59); MONO% 9.1 % (1.7-9.3); NEUT# 11.71 X1000 (1.4-6.5); NEUT% 73.5 % (42.2-75.2); PLT 278 X1000 (130-400); RBC 3.56 XMIL (4.2-5.4); RDW 13.3 % (11.5-14.5); WBC 15.92 X1000 (4.8-10.8)
[2019-08-24] MEDS: ZOFRAN IV PRN (08:11)
[2019-08-24] MEDS: MORPHINE IV PRN ×2 (08:11→12:00)
[2019-08-24 08:39] LABS: ALB/GLOB RATIO 0.7; ALBUMIN 2.5 g/dL (3.5-5.0); CALCIUM 8.3 mg/dL (8.8-10.2); CREATININE 1.5 mg/dL (0.5-0.9); POTASSIUM 3.3 mmol/L (3.5-5.1); TOTAL BILIRUBIN 0.27 mg/dL (0.20-1.00); TOTAL PROTEIN 6.2 g/dL (6.3-8.3)
[2019-08-24 10:19] LABS: BANDS 3 % (0-1); LYMPHS 19 % (21-51); MONO 7 % (1-9); SEGS 69 % (42-75)
[2019-08-24] MEDS: PATIENT'S OWN MED PO SCH (11:56)
[2019-08-24] MEDS ORDERED: MORPHINE IV ONE (14:33)
--- NOTE | 2019-08-24 14:48 | PROGRESS NOTE ---
DATE: 08/24/2019 SUBJECTIVE: The patient is still complaining of abdominal pain. She is scheduled today for sigmoid colectomy. She is on IV fluids, and she is on Zosyn, which I will continue. OBJECTIVE: Vital Signs: Temperature 98.5 degrees, pulse 76, respiratory rate 14, blood pressure 144/75, oxygen saturation 99 on room air. HEENT: Head normocephalic. No trauma. PERRLA. Neck: Supple. No JVD. No masses. Central trachea. Chest: Clear to auscultation. No wheezing. No rales. Abdomen: Soft. It is slightly distended. Generalized tenderness to palpation. Probably some rebound. Neurological: Awake, alert. She is oriented x3. LABORATORY DATA: WBC 15.9, hemoglobin 11.1, hematocrit 33.6, platelets 278,000. Sodium 145, potassium 3.3, chloride 103, bicarbonate 22, BUN 6, creatinine 1.5, glucose 100, calcium 8.3. AST 15, ALT 5, alkaline phosphatase 106, albumin 2.5. ASSESSMENT AND PLAN: 1. Sepsis due to sigmoid diverticulitis with abscess formation. The patient has been evaluated by Surgery Department. Initially, this patient was hypotensive. Now, the blood pressure seems to be more stable. She will go today for a sigmoid colectomy. She is nothing by mouth. I will continue with intravenous fluids. 2. Acute kidney injury. Continue with intravenous fluids. Likely due to the hypotension and/or dehydration at the beginning. Will monitor this patient closely. 3. Uterine fibroid with bilateral ovarian cyst. Noted. The patient needs to follow up with Obstetrics/Gynecology as an outpatient. 4. History of hypertension, stable. cc: Darrion Burgess MD
[2019-08-24] MEDS ORDERED: DIPRIVAN 1% ONE (14:52)
[2019-08-24] MEDS ORDERED: QUELICIN (DOSE) ONE (14:55)
[2019-08-24] MEDS ORDERED: XYLOCAINE-MPF 2% ONE (14:55)
[2019-08-24] MEDS ORDERED: ZOFRAN ONE (14:55)
[2019-08-24] MEDS ORDERED: FENTANYL ONE (14:55)
[2019-08-24] MEDS ORDERED: ZEMURON ONE (14:55)
[2019-08-24] MEDS ORDERED: VERSED ONE (15:24)
[2019-08-24] MEDS ORDERED: EXPAREL 1.3% ONE (15:26)
[2019-08-24] MEDS ORDERED: MARCAINE 0.25% ONE (15:26)
[2019-08-24] MEDS ORDERED: SODIUM CHLORIDE 0.9% 10 ML ONE (15:26)
--- NOTE | 2019-08-24 15:38 | GENERAL SURGERY PROGRESS NOTE ---
DATE: 08/24/2019 SUBJECTIVE: She continues to have some lower abdominal pain, maybe slightly improved. No fevers. No tachycardia. OBJECTIVE: On exam, she is alert. Cardiovascular normal rate. Her abdomen is soft, mildly tender in the lower quadrants. LABORATORY DATA: I reviewed her labs. White count remains elevated at 15, hematocrit 33. Her potassium has leveled at 1.5. Urine output has been adequate, actually quite a lot, 3 L yesterday. ASSESSMENT AND PLAN: This is a 54-year-old female with diverticular abscess refractory to antibiotics. I have increased her fluids overnight. She is hydrated adequately I feel. I did stop the vancomycin yesterday. I wonder if this is what was contributing to her renal plight worsening, but she is nonoliguric. We will go to the operating room for sigmoid colectomy. We discussed risks of bleeding, infection, persistent symptoms, possibility of colostomy that is quite high. She understands all this and we also discussed anticipated recovery. She understands all this and consents. Her sister is here with her. We discussed this in front the her sister as well. cc: Dorian Argueta MD
[2019-08-24 15:47] LABS: URINE SOURCE CATH
[2019-08-24 15:51] LABS: BILIRUBIN URINE NEGATIVE (NEGATIVE); BLOOD URINE NEGATIVE (NEGATIVE); COLOR YELLOW; GLUCOSE URINE NEGATIVE (NEGATIVE); KETONE URINE TRACE mg/dL (NEGATIVE); LEUKOCYTES URINE NEGATIVE (NEGATIVE); NITRITE URINE NEGATIVE (NEGATIVE); PH URINE 5.5; PROTEIN URINE TRACE mg/dL (NEGATIVE); SP GRAVITY URINE 1.015; TURBIDITY URINE CLEAR (CLEAR); UR EPITHELIAL CELLS <10 /HPF (<10); URINE BACTERIA NEGATIVE /HPF; URINE RBC <10 /HPF (<10); URINE WBC <10 /HPF (<10); UROBILINOGEN URINE NORMAL (NORMAL)
[2019-08-24] MEDS ORDERED: DECADRON ONE (16:06)
[2019-08-24] MEDS ORDERED: DILAUDID ONE (16:26)
[2019-08-24] MEDS ORDERED: NEO-SYNEPHRINE ONE (16:45)
[2019-08-24] MEDS ORDERED: NEOSTIGMINE ONE (17:22)
[2019-08-24] MEDS ORDERED: ROBINUL ONE (17:22)
[2019-08-24] MEDS ORDERED: DILAUDID IV PRN (18:07)
[2019-08-24] MEDS ORDERED: ULTRAM PO PRN (18:08)
[2019-08-24] MEDS ORDERED: LR 1,000 ML ONE (18:24)
--- NOTE | 2019-08-24 20:12 | OPERATIVE NOTE ---
PROCEDURE DATE: 08/24/2019 PREOPERATIVE DIAGNOSIS: Diverticular abscess. POSTOPERATIVE DIAGNOSIS: Diverticular abscess. PROCEDURES PERFORMED: 1. Open sigmoid colectomy with end-colostomy. 2. Drainage of intraabdominal abscess. 3. Mobilization of splenic flexure. ESTIMATED BLOOD LOSS: 150 mL. SPECIMENS: 1. Sigmoid colon. 2. Peritoneal abscess fluid for culture. ANESTHESIA: General with TAP block. INDICATIONS: This is a female who presented with a diverticular abscess. She was treated with antibiotics 48 hours, failed to progress. OPERATIVE FINDINGS: There was a very large fibroid uterus. There was extensive thickening along the left pelvic sidewall with thickening of the mesentery, and a large abscess cavity posterior and left lateral. The rectum became normal at approximately the level of the coalescence of the tenia. OPERATIVE NOTE: Risks, benefits, and alternatives were discussed with the patient. She consented to procedure. Seen preoperatively. Surgical site was confirmed and marked. She was taken to the operating room, placed supine position. General anesthesia was induced. She was placed in lithotomy. Monteiro was placed. A TAP block was performed and her abdomen was prepped with chlorhexidine solution and draped in the usual fashion. After time-out, but prior to prepping, we did perform a digital rectal examination. There was some loose stool, but otherwise no mass and normal tone. After time-out, we made a midline incision. We carried this down through the fascia, this along the midline, extending down to the suprapubic symphysis, protecting the bladder and Federico wound protector was placed. We inspected the abdomen. We began mobilizing the colon using blunt and electrocautery dissection off the posterior aspect of the uterus. The right lateral retroperitoneal structures were identified. On the left side, there was a large abscess cavity that we entered and drained, culturing it. We then got an area of more normal appearing colon proximally. We continued our dissection distally to identify the retroperitoneal structures, which we did and protected. At this point, proximal colon was divided and the mesentery of the colon was divided with the LigaSure device down to an area that was distal and soft. We encircled this and divided it with a TA stapler, yon montilla. At this point, given the size of her abdominal wall and the foreshortened nature of her colonic mesentery, we had to mobilize the splenic flexure and even divide the left colon branch to provide adequate reach. We did this protecting the retroperitoneal structures. We irrigated the abdomen copiously. A Carloz drain was placed in the pelvis. An incision was made lateral and slightly inferior to the umbilicus. Muscles and fibers were divided and a small Federico wound protector was placed here, and we eviscerated the colon out through this incision. There was no tension, but it just did reach. At this point, we irrigated, noted hemostasis. We closed the fascia with a #1 running looped PDS suture after changing our gloves and getting rid of the dirty instruments. The skin was closed loosely with surgical clips and the wound was excluded. We did tag the rectal stump with a Prolene suture. The staple line of the colon was removed and the colon was pink and well perfused, and was matured using 3-0 Vicryl sutures. Ostomy appliance and a gauze Medipore dressing applied. She tolerated it well. No complication. cc: Dorian Argueta MD
[2019-08-25] MEDS: MORPHINE IV PRN ×4 (00:31→17:37)
[2019-08-25] MEDS: ZOFRAN IV PRN ×2 (00:32→17:42)
[2019-08-25] MEDS: ZOSYN 4.5 GM in NS 100 ML IV SCH ×7 (00:32→22:47)
[2019-08-25] MEDS: LR 1,000 ML IV SCH ×4 (00:42→20:42)
[2019-08-25] MEDS: PATIENT'S OWN MED PO SCH ×3 (00:47→20:42)
[2019-08-25] MEDS: PRILOSEC PO SCH (06:18)
[2019-08-25 08:26] LABS: BASO# 0.05 X1000 (0.0-0.2); BASO% 0.3 % (0.0-0.8); HEMATOCRIT 34.1 % (37.0-47.0); IMM GRAN# 0.06 X1000 (0.0-0.04); IMM GRAN% 0.3 % (0.0-0.5); LYMPH# 1.39 X1000 (1.2-3.4); LYMPH% 8.1 % (20.5-51.1); MCH 30.5 PG (27-31); MCHC 32.3 g/dL (33-37); MCV 94.5 FL (81-99); MONO# 1.64 X1000 (0.11-0.59); MONO% 9.5 % (1.7-9.3); MPV 10.4 FL (7.4-10.4); NEUT% 81.8 % (42.2-75.2); PLT 308 X1000 (130-400); RBC 3.61 XMIL (4.2-5.4); RDW 13.4 % (11.5-14.5); WBC 17.24 X1000 (4.8-10.8)
[2019-08-25 08:42] LABS: BANDS 2 % (0-1); LYMPHS 16 % (21-51); MONO 10 % (1-9); SEGS 70 % (42-75)
[2019-08-25] MEDS ORDERED: MAG-OX PO SCH (09:00)
[2019-08-25 09:03] LABS: ALB/GLOB RATIO 0.6; ALBUMIN 2.2 g/dL (3.5-5.0); CALCIUM 8.2 mg/dL (8.8-10.2); CREATININE 1.3 mg/dL (0.5-0.9); POTASSIUM 3.4 mmol/L (3.5-5.1); TOTAL BILIRUBIN 0.26 mg/dL (0.20-1.00); TOTAL PROTEIN 5.7 g/dL (6.3-8.3)
[2019-08-25] MEDS: PROTONIX IV SCH (11:05)
--- NOTE | 2019-08-25 15:55 | PROGRESS NOTE ---
DATE: 08/25/2019 SUBJECTIVE: The patient is still complaining of abdominal pain. She is status post open sigmoid colectomy with an end-colostomy, drainage of intra-abdominal abscess, and mobilization of the splenic flexure due to diverticular abscess, postoperative day #1. This patient seems to be stable. Vital signs are stable. She is getting fluids and pain medication. I will allow her to eat a little bit of ice chips. Surgery Department on board. Continue with antibiotics. OBJECTIVE: Vital Signs: Temperature 97.4 degrees, pulse 101, respiratory rate 14, blood pressure 115/69, oxygen saturation 96 on room air. HEENT: Head normocephalic, no trauma, PERRLA. Neck: Supple. No JVD. No masses. Central trachea. Chest: Clear to auscultation. No wheezing. No rales. Abdomen: Distended, decreased bowel sounds. She has a midline scar with a left colostomy in place. I do not see any stool. Extremities: No edema, no clubbing, no cyanosis. Neurological: The patient is awake and alert. She is oriented x3. No focal deficits. LABORATORY: WBC 17.2, hemoglobin 11, hematocrit 34.1, platelets 308,000. Sodium 147, potassium 3.4, chloride 115, bicarbonate 19, BUN 9, creatinine 1.3, glucose 107, calcium 8.2, phosphorus 5, albumin 2.2. ASSESSMENT AND PLAN: 1. Sepsis due to sigmoid diverticulitis with abscess formation, status post open sigmoid colectomy with end-colostomy, drainage of intra-abdominal abscess and mobilization of the splenic flexure, postoperative day #1. Patient seems to be stable. Vital signs are stable. White blood cell count increased, creatinine decreased from compared with yesterday from 1.5 to 1.3. She has been placed on lactate ringer at 125 mL/hr, and I will continue with the same management. We will monitor this patient closely. I will allow this patient to get some ice chips. 2. Acute kidney injury. Continue with IV fluids, likely due to hypotension and/or dehydration on top of sepsis. Continue to monitor this closely. 3. Uterine fibroid with bilateral ovarian cyst, noted. She will need to follow up with ASSISTED LIVING ASSOCIATE as an outpatient. 4. History of hypertension. I have been holding her blood pressure medication, lisinopril, because of her acute kidney injury and normal blood pressure. We will monitor. She had some low blood pressure during this hospitalization a few days ago. cc: Darrion Burgess MD
--- NOTE | 2019-08-25 16:59 | INFECTIOUS DISEASE PROGRESS NO ---
DATE: 08/25/2019 PRESENT ILLNESS: The patient is status post sigmoid colectomy with end colostomy and drainage of the diverticular abscess. The patient also has 1/2 blood cultures growing a Streptococcus sanguis. MEDICATIONS: The patient is receiving Zosyn for the past 4 days. PHYSICAL EXAMINATION: Vital Signs: Temperature is 97.4 degrees, pulse 101, respirations 14, blood pressure 115/69. General: This is an ill-appearing, middle-aged female. She is having abdominal pain. Head/eyes/ears/nose/throat: She can hear my spoken words and see near objects. She does not have any white coating on her tongue. Neck: No meningismus. Lungs: Clear to auscultation. Cardiovascular: Regular heart rate. Abdomen: Soft but tender. There is a midline incision with a dressing on it. A Fernando-Barroso drain is in place. Also there is a end colostomy present. LAB AND X-RAY STUDIES: There is no new radiographic study. The patient's CBC today shows a white count of 17,240, hemoglobin 11 and platelet count 308,000. Creatinine is 1.3. GFR is 52. Liver function studies are normal. One out of two blood cultures grew Strep sanguis. Culture of the abdomen shows a gram-negative roberta. The plan is to continue with Zosyn pending further studies. ASSESSMENT AND PLAN: The patient is status post sigmoid colectomy with end colostomy and drainage of the diverticular abscess. The patient has a streptococcal bacteremia. I will continue Zosyn. COMORBIDITIES: The patient smokes cigarettes, drinks alcoholic beverages and uses marijuana. cc: Juancarlos Banerjee MD MTDD
[2019-08-25] MEDS: LOVENOX SUBQ SCH (17:37)
--- NOTE | 2019-08-25 19:45 | GENERAL SURGERY PROGRESS NOTE ---
DATE: 08/25/2019 SUBJECTIVE: Doing well. Hemodynamically stable overnight. Her drain is serosanguineous. Her abdomen is soft. She has had no nausea. Says her pain is well controlled. OBJECTIVE: On exam, her abdomen is soft. Her ostomy is viable, slightly dusky. DATA: Hematocrit 34, white count is up to 17. Creatinine is 1.3, is down from yesterday. I have reviewed her medications. She has Zosyn ordered, Protonix, morphine as needed for pain, LR 125. Urine output has been adequate. ASSESSMENT AND PLAN: A 54-year-old female status post Rose's procedure for perforated diverticulitis. We cultured the fluid, it is growing gram-negative rods. She is on appropriate antibiotics. We will continue to follow along. Dr. Welsh is rail operations controller this weekend. We will remove her Monteiro catheter planning on tomorrow. Continue current antibiotics pending cultures. She can have low volume clear liquids. Also, okay for her to have prophylactic Lovenox. cc: Dorian Argueta MD
[2019-08-26] MEDS: MORPHINE IV PRN ×5 (01:17→23:27)
[2019-08-26] MEDS: ZOFRAN IV PRN ×4 (01:17→23:27)
[2019-08-26] MEDS: ZOSYN 4.5 GM in NS 100 ML IV SCH ×4 (05:25→23:27)
[2019-08-26] MEDS: LR 1,000 ML IV SCH (05:25)
[2019-08-26 08:40] LABS: BASO# 0.02 X1000 (0.0-0.2); BASO% 0.2 % (0.0-0.8); EOS# 0.09 X1000 (0.0-0.7); EOS% 0.7 % (0.0-10.0); HEMATOCRIT 28.9 % (37.0-47.0); HEMOGLOBIN 9.4 g/dL (12.0-16.0); IMM GRAN# 0.08 X1000 (0.0-0.04); IMM GRAN% 0.6 % (0.0-0.5); LYMPH# 2.07 X1000 (1.2-3.4); LYMPH% 15.7 % (20.5-51.1); MCH 30.8 PG (27-31); MCHC 32.5 g/dL (33-37); MCV 94.8 FL (81-99); MONO# 1.33 X1000 (0.11-0.59); MONO% 10.1 % (1.7-9.3); MPV 10.6 FL (7.4-10.4); NEUT# 9.63 X1000 (1.4-6.5); NEUT% 72.7 % (42.2-75.2); PLT 255 X1000 (130-400); RBC 3.05 XMIL (4.2-5.4); RDW 13.6 % (11.5-14.5); WBC 13.22 X1000 (4.8-10.8)
[2019-08-26 08:53] LABS: ALBUMIN 2.2 g/dL (3.5-5.0); CHLORIDE 110 mmol/L (98-107); POTASSIUM 3.2 mmol/L (3.5-5.1); SODIUM 143 mmol/L (136-145)
[2019-08-26] MEDS: PATIENT'S OWN MED PO SCH ×2 (08:56→23:20)
[2019-08-26 09:37] LABS: ESTIMATED GFR 52
[2019-08-26 10:27] LABS: BUN 10 mg/dL (8-22); CREATININE 1.3 mg/dL (0.5-0.9); GLUCOSE 85 mg/dL (70-104); GOT 17 U/L (10-30); GPT < 5 U/L (10-36); MAGNESIUM 1.8 mg/dL (1.5-2.7); TCO2 20 mmol/L (25-35); TOTAL PROTEIN 5.5 g/dL (6.3-8.3)
[2019-08-26] MEDS: PROTONIX IV SCH (10:32)
[2019-08-26 10:40] LABS: AGAP 13
[2019-08-26 10:42] LABS: COSMO 283
[2019-08-26 10:43] LABS: ALB/GLOB RATIO 0.6
[2019-08-26 10:51] LABS: ALKALINE PHOSPHATASE 75 U/L (32-104)
[2019-08-26] MEDS ORDERED: LR 1,000 ML IV SCH (11:10)
[2019-08-26 11:48] LABS: BANDS 4 % (0-1); LYMPHS 6 % (21-51); MONO 10 % (1-9); SEGS 80 % (42-75)
--- NOTE | 2019-08-26 12:53 | PROGRESS NOTE ---
DATE: 08/26/2019 SUBJECTIVE: This morning Ms. Garcia refers to be doing well. No new complaints. Still has some mild abdominal discomfort. OBJECTIVE: Vital signs: Blood pressure is 137/79, pulse of 93, respirations 21, temperature is 98.8 degrees. General: Ms. Garcia is a 54-year-old, -[place] female, she is in bed. No cardiopulmonary distress. Mucosa is pink and moist. Anicteric. Acyanotic. Neck: Supple. Chest: Good air entry bilaterally. There are no crepitations, no rhonchi. Cardiovascular: Regular rate and rhythm. No murmurs, no rubs, no gallops. GI: Abdomen is soft, is distended, minimally tender. There is a sterile dressing over the surgical incision on the mid abdomen. There is an ostomy on the left side of the abdominal wall. There is edema on the lateral aspect of the abdominal wall extending down to the upper thighs. GROUP INSURANCE SPECIALIST: Patient is awake, alert, and oriented. DATA: Laboratory data shows WBC is 13.33, hemoglobin is 9.4, platelet count of 255,000. Chemistry is also reviewed. Potassium was 3.3, creatinine is 1.3. So far abdomen culture shows Escherichia coli. The blood culture is Streptococcus sanguinis. ASSESSMENT: 1. Sepsis on presentation secondary to intra-abdominal infection with abscess formation. 2. Complicated sigmoid diverticulitis with abscess formation. The patient was initially treated conservatively; however, she did not improve so she underwent an open sigmoid colectomy with end-colostomy, drainage of intra-abdominal abscess and mobilization of the splenic flexure by Dr. Argueta on 08/24/2019. Today is day 2 post-postop. 3. Urine fibroid with bilateral ovarian cyst noted on imaging. Patient needs to follow up with REFUND SPECIALIST. 4. History of hypertension. 5. Acute kidney injury, improving. 6. Electrolyte abnormality including hypokalemia. We will continue to replace. 7. Fluid overload. Ms. Garcia is clearly edematous. Per documentation, she is about 8,538 positive balance, so I have discontinue her fluids and we will continue just to observe. 8. Streptococcal sanguinis bacteremia and Escherichia coli intra-abdominal abscess with peritonitis. The patient is on Zosyn which covers both pathogens. cc: Joshua Yung MD
--- NOTE | 2019-08-26 13:16 | GENERAL SURGERY PROGRESS NOTE ---
DATE: 08/26/2019 Ms. Garcia is without fever, heart rate 96, blood pressure 137/79. She is not really tolerant of broth yet, says it tends to make her sick. She is taking water okay. No output in her colostomy yet. Intake 2,750, output 1,100. Drain has put out 150 mL. White count is down to 13,200, hemoglobin 9.4, hematocrit 29. Chemistry shows her potassium is a little low. The plan will be to take her Monteiro out and reduce her IV intake. cc: Jose Elias Welsh MD
[2019-08-26] MEDS: LOVENOX SUBQ SCH (18:35)
[2019-08-27] MEDS: ZOFRAN IV PRN ×3 (04:22→18:33)
[2019-08-27] MEDS: ZOSYN 4.5 GM in NS 100 ML IV SCH ×3 (04:22→18:29)
[2019-08-27] MEDS: MORPHINE IV PRN ×4 (04:22→18:33)
--- NOTE | 2019-08-27 07:43 | GENERAL SURGERY PROGRESS NOTE ---
DATE: 08/27/2019 SUBJECTIVE: She is postop day 3 after a sigmoid resection and colostomy. OBJECTIVE: She is afebrile with stable hemodynamics. I do not see much in her colostomy bag. Her bowel sounds are present. However, she has tolerated clear liquid satisfactorily. PLAN: The plan will be to advance her to full liquids today. cc: Jose Elias Welsh MD
[2019-08-27 09:01] LABS: ALB/GLOB RATIO 0.6; ALBUMIN 2.3 g/dL (3.5-5.0); CALCIUM 8.3 mg/dL (8.8-10.2); CREATININE 1.3 mg/dL (0.5-0.9); MAGNESIUM 1.8 mg/dL (1.5-2.7); POTASSIUM 3.1 mmol/L (3.5-5.1); TOTAL BILIRUBIN 0.21 mg/dL (0.20-1.00)
[2019-08-27 09:02] LABS: BASO# 0.02 X1000 (0.0-0.2); BASO% 0.2 % (0.0-0.8); EOS# 0.29 X1000 (0.0-0.7); EOS% 2.2 % (0.0-10.0); HEMATOCRIT 29.2 % (37.0-47.0); HEMOGLOBIN 9.4 g/dL (12.0-16.0); IMM GRAN# 0.05 X1000 (0.0-0.04); IMM GRAN% 0.4 % (0.0-0.5); LYMPH# 2.47 X1000 (1.2-3.4); LYMPH% 18.8 % (20.5-51.1); MCH 30.5 PG (27-31); MCHC 32.2 g/dL (33-37); MCV 94.8 FL (81-99); MONO# 1.15 X1000 (0.11-0.59); MONO% 8.8 % (1.7-9.3); MPV 10.4 FL (7.4-10.4); NEUT# 9.15 X1000 (1.4-6.5); NEUT% 69.6 % (42.2-75.2); PLT 286 X1000 (130-400); RBC 3.08 XMIL (4.2-5.4); RDW 13.4 % (11.5-14.5); WBC 13.13 X1000 (4.8-10.8)
[2019-08-27] MEDS: PATIENT'S OWN MED PO SCH ×2 (09:16→20:55)
[2019-08-27] MEDS ORDERED: LASIX IV ONE (09:56)
[2019-08-27] MEDS: PROTONIX IV SCH (09:56)
[2019-08-27 10:19] LABS: BANDS 2 % (0-1); LYMPHS 16 % (21-51); MONO 16 % (1-9); SEGS 66 % (42-75)
--- NOTE | 2019-08-27 10:49 | PROGRESS NOTE ---
DATE: 08/27/2019 SUBJECTIVE: This morning Ms. Garcia refers to be doing well. She was actually sitting at the edge of the bed having her breakfast. OBJECTIVE: Vital signs: Blood pressure is 136/73, pulse of 88, respirations 23, temperature 97.9 degrees. The patient was saturating 92% on room air. General: Ms. Garcia is a 54-year-old female. She was sitting at the edge of the bed, no distress. HEENT: Mucosa is pink and moist. Anicteric. Acyanotic. Neck: Supple. Chest: Good air entry bilaterally. There was no crepitations no rhonchi. Cardiovascular: Regular rate and rhythm. No murmurs, no rubs, no gallops. GI: Abdomen soft, distended. There is a sterile dressing over the surgical incision on the mid abdomen. There is ostomy on the left side of the abdomen. The ostomy bag has some trace of feces in there, but most of the secretions looks serosanguineous. There is edema on the lateral aspect of the abdominal wall extending to the upper thighs. LITIGATION ATTORNEY ASSOCIATE: Patient is awake, alert, and oriented. LABORATORY DATA: WBC is 13.13, hemoglobin is 9.4, platelet count of 283,000. Chemistry is also reviewed: Potassium is 3.1, creatinine is 1.3. ASSESSMENT: 1. Sepsis on presentation secondary to intra-abdominal infection with abscess formation. 2. Complicated sigmoid diverticulitis with abscess formation patient is was initially treated conservatively, however, did undergo open sigmoid colectomy with end colostomy, drainage of the intra-abdominal abscess and mobilization of the splenic flexure by Dr. Argueta. Today is date 3 postop. 3. Uterine fibroid with bilateral ovarian cyst noted on imaging. Patient advised to follow up with Ob-Composing Room Machinist. 4. Hypertension controlled. 5. Acute kidney injury, stable. 6. Electrolyte abnormality including hypokalemia. We will continue to replace. 7. Fluid overload, most likely from over-hydration during the initial stages of the of sepsis. IV fluids has been discontinue and I am giving her a dose of Lasix this morning. 8. Streptococcal sanguinous bacteremia and Escherichia coli intra-abdominal abscess with peritonitis. The patient is on Zosyn which covers both pathogens. Blood cultures have been repeated this morning. Infectious Disease is on board. PLAN: In general, I think Ms. Garcia is doing well. She is day 3 post laparotomy. She is tolerating clear liquid diet. This has been advanced to full liquid diet this morning by surgery. We are going to continue with the current antibiotics. We will also replace the electrolyte abnormality and have given the patient a dose of Lasix for the fluid overload. We will re- evaluate her in the morning and make further recommendations. 1. . cc: Joshua Yung MD
[2019-08-27] MEDS: POTASSIUM CHLORIDE 20 MEQ/SWI 20 MEQ/100 ML IVPB IV SCH ×2 (13:17→14:56)
--- NOTE | 2019-08-27 17:08 | INFECTIOUS DISEASE PROGRESS NO ---
DATE: 08/27/2019 PRESENT ILLNESS: The patient is status post sigmoid colectomy with end colostomy and drainage of a diverticular abscess. One out of two blood cultures are growing Streptococcus sanguis and the patient's grew from her abdomen at surgery E coli and Bacteroides. MEDICATIONS: The patient has been on Zosyn now for the past 7 days. PHYSICAL EXAMINATION: Vital Signs: Temperature is 98 degrees, pulse 90, respirations 20, blood pressure 109/69. General: This is an ill-appearing middle-aged female. She does feel a little bit better today. She is not having as much pain and she is able to tolerate p.o. liquids. Head/eyes/ears/nose/throat: She can hear my spoken words and see near objects. She does not have any white patches on her tongue. Neck: No pain with movement. Lungs: Clear to auscultation. Cardiovascular: Regular heart rate. Abdomen: Soft but tender. The patient's midline incision has a dressing over it. The patient also has a Fernando-Barroso drain in place as well as an end colostomy. Neurologic: The patient is alert. She is sitting up in a chair. She can move her extremities. There is no tremor. LAB AND X-RAY: The patient grew from the blood Streptococcus and from the abdomen, E coli and Bacteroides. The patient's CBC shows a white count of 13,130, hemoglobin 9.4, and platelet count 286,000. Creatinine is 1.3. GFR is 52. Liver function studies are normal. ASSESSMENT: The patient is status post sigmoid colectomy with end colostomy and drainage of a diverticular abscess. She has bacteremia with the following organisms, Streptococcus, E coli, and Bacteroides. My plan is to continue Zosyn. COMORBIDITIES: The patient is a cigarette smoker and she drinks alcoholic beverages and uses marijuana. cc: Juancarlos Banerjee MD
[2019-08-27] MEDS: LOVENOX SUBQ SCH (18:28)
[2019-08-28] MEDS: ZOSYN 4.5 GM in NS 100 ML IV SCH ×4 (03:59→20:47)
[2019-08-28] MEDS: MORPHINE IV PRN ×3 (03:59→18:58)
[2019-08-28] MEDS: ZOFRAN IV PRN (03:59)
[2019-08-28] MEDS: PROTONIX IV SCH ×2 (09:05→17:21)
[2019-08-28 09:50] LABS: ALB/GLOB RATIO 0.5; CALCIUM 8.5 mg/dL (8.8-10.2); CREATININE 1.2 mg/dL (0.5-0.9); MAGNESIUM 1.6 mg/dL (1.5-2.7); POTASSIUM 3.2 mmol/L (3.5-5.1); TOTAL BILIRUBIN 0.22 mg/dL (0.20-1.00); TOTAL PROTEIN 5.7 g/dL (6.3-8.3)
[2019-08-28] MEDS ORDERED: POTASSIUM CHLORIDE 20% LIQUID PO ONE (10:11)
[2019-08-28 11:18] LABS: BASO# 0.03 X1000 (0.0-0.2); BASO% 0.3 % (0.0-0.8); EOS# 0.23 X1000 (0.0-0.7); EOS% 2.4 % (0.0-10.0); HEMATOCRIT 28.5 % (37.0-47.0); HEMOGLOBIN 9.2 g/dL (12.0-16.0); IMM GRAN# 0.04 X1000 (0.0-0.04); IMM GRAN% 0.4 % (0.0-0.5); LYMPH# 2.37 X1000 (1.2-3.4); LYMPH% 24.4 % (20.5-51.1); MCH 30.8 PG (27-31); MCHC 32.3 g/dL (33-37); MCV 95.3 FL (81-99); MONO# 0.89 X1000 (0.11-0.59); MONO% 9.1 % (1.7-9.3); MPV 10.2 FL (7.4-10.4); NEUT# 6.17 X1000 (1.4-6.5); NEUT% 63.4 % (42.2-75.2); PLT 272 X1000 (130-400); RBC 2.99 XMIL (4.2-5.4); RDW 13.3 % (11.5-14.5); WBC 9.73 X1000 (4.8-10.8)
[2019-08-28 11:36] LABS: EOS 2 % (1-10); LYMPHS 20 % (21-51); MONO 9 % (1-9); SEGS 69 % (42-75)
[2019-08-28 11:37] LABS: ANISOCYTOSIS 1+; HYPOCHROM 2+
--- NOTE | 2019-08-28 15:12 | PROGRESS NOTE ---
DATE: 08/28/2019 SUBJECTIVE: This patient seems to be doing better. As per the patient, she was able to walk with assistance a little bit. She has been passing gas. She is tolerating a little bit her diet which had been advanced yesterday. She is bacteremic and she has been followed by Dr. Banerjee. OBJECTIVE: Vital Signs: Temperature 98 degrees, pulse 78, respiratory rate 18, blood pressure 182/78, oxygen saturation 98 on room air. HEENT: Head normocephalic. No trauma. PERRLA. Neck: Supple. No JVD. No masses. Central trachea. Chest: Clear to auscultation. No wheezing. No rales. Abdomen: Soft. It is distended. Positive bowel sounds. There is a dressing in the middle of the abdomen with no signs of bleeding or infection. There is an ostomy on the left side of the abdomen that is working. He had stools inside. Neurological Examination: The patient is awake. She is oriented. She is alert. Laboratory: WBC 9.7, hemoglobin 9.2, hematocrit 28.5, platelets 272,000. Sodium 142, potassium 3.2, chloride 106, bicarbonate 24, BUN 5, creatinine 1.2, glucose 80, calcium 8.5, albumin 2. ASSESSMENT AND PLAN: 1. Sepsis on presentation secondary to intra-abdominal infection with abscess formation. 2. Complicated sigmoid diverticulitis with abscess formation, status post sigmoid colectomy with end-colostomy, drainage of the intra-abdominal abscess, and mobilization of the splenic flexure by Dr. Argueta, postoperative day #4. 3. Bacteremia due to Streptococcus sanguinis, followed by Dr. Banerjee. Continue with antibiotics. 4. Hypertension, stable. 5. Acute kidney injury, stable. 6. Electrolyte abnormalities including hypokalemia. I will replace. 7. Uterine fibroid with bilateral ovarian cysts noted on images. Patient advised to follow up with obstetrics/gynecology. 8. Patient seems to be more stable. Her diet had been advanced yesterday and she seems to be tolerating this. We will monitor. I will follow the recommendations of both surgery department and infectious disease department. cc: Darrion Burgess MD
--- NOTE | 2019-08-28 15:24 | INFECTIOUS DISEASE PROGRESS NO ---
DATE: 08/28/2019 PRESENT ILLNESS: The patient is status post sigmoid colectomy with end colostomy and drainage of a diverticular abscess. The patient had 1 of 2 blood cultures grow Streptococcus sanguinis. She also grew from her abdomen at surgery, E coli and Bacteroides. MEDICATIONS: The patient has been on Zosyn now for 8 days. PHYSICAL EXAMINATION: Vital Signs: Temperature is 98 degrees, pulse 78, respirations 18, blood pressure 182/78. General: The patient looks much better today. She is alert and talking and in a much better humor. Head, Eyes, Ears, Nose, Throat: She can hear my spoken words and see near objects. She does not have any white coating of her tongue. Neck: No pain with movement. Lungs: Clear to auscultation. Cardiovascular: Regular heart rate. Abdomen: Soft and it was not tender to light palpation. The patient's midline has a dressing over it. There is a Fernnado- Barroso drain in place and also a functional colostomy in place. Neurologic: The patient is alert. She has been sitting up in a chair and today she told me she is going to be getting up and walking. LAB AND X-RAY: There is no new radiographic study. Patient's CBC shows a white count of 9730, hemoglobin 9.2, platelet count 272,000, creatinine is 1.2. GFR is 57. Liver function studies are normal. Repeat blood cultures are pending. A culture from the abdomen grew Bacteroides and Escherichia coli. ASSESSMENT AND PLAN: The plan now is to continue with Zosyn for the patient's streptococcal bacteremia and the Escherichia coli and Bacteroides abdominal infection. COMORBIDITIES: Cigarette smoking, alcohol consumption, and use of marijuana. cc: Juancarlos Banerjee MD
[2019-08-28] MEDS: PATIENT'S OWN MED PO SCH ×2 (17:21→20:43)
[2019-08-28] MEDS: LOVENOX SUBQ SCH (17:22)
--- NOTE | 2019-08-28 19:06 | GENERAL SURGERY PROGRESS NOTE ---
DATE: 08/28/2019 SUBJECTIVE: Doing okay. Ostomy functioning. No fevers. No tachycardia. She is still having some pain. She is not really moving very much. OBJECTIVE: Abdomen is soft. Ostomy has slight duskiness distally but stools in the bag. MARJORIE drain serosanguineous. White count is 9, hematocrit is 28 and creatinine is 1.2. ASSESSMENT AND PLAN: A 54-year-old female status post Rose procedure. We will continue to advance her diet as tolerated. We encouraged her to be out of bed and ambulating. We will keep her drain for now, but we will remove it. She has grown multiple organisms susceptible to Zosyn. We will follow along. cc: Dorian Argueta MD
[2019-08-29] MEDS: ZOSYN 4.5 GM in NS 100 ML IV SCH ×4 (02:30→20:28)
[2019-08-29 08:30] LABS: AGAP 10; BUN 5 mg/dL (8-22); CALCIUM 8.4 mg/dL (8.8-10.2); CHLORIDE 108 mmol/L (98-107); COSMO 280; CREATININE 1.1 mg/dL (0.5-0.9); ESTIMATED GFR > 60; GLUCOSE 93 mg/dL (70-104); POTASSIUM 3.5 mmol/L (3.5-5.1); SODIUM 142 mmol/L (136-145); TCO2 24 mmol/L (25-35)
[2019-08-29 08:40] LABS: HEMATOCRIT 28.1 % (37.0-47.0); HEMOGLOBIN 8.9 g/dL (12.0-16.0); MCH 30.3 PG (27-31); MCHC 31.7 g/dL (33-37); MCV 95.6 FL (81-99); MPV 10.3 FL (7.4-10.4); RBC 2.94 XMIL (4.2-5.4); RDW 13.1 % (11.5-14.5); WBC 9.69 X1000 (4.8-10.8)
[2019-08-29] MEDS: MORPHINE IV PRN ×2 (09:34→20:28)
[2019-08-29] MEDS: PROTONIX IV SCH (09:35)
--- NOTE | 2019-08-29 12:48 | PROGRESS NOTE ---
DATE: 08/29/2019 SUBJECTIVE: No acute events overnight. The drain has been removed by Surgery Department. She will need to continue with physical activity so she can get stronger and better. OBJECTIVE: Vital Signs: Temperature 98.2 degrees, pulse 83, respiratory rate 17, blood pressure 152/77, oxygen saturation 97% on room air. HEENT: Head normocephalic. No trauma. PERRLA. Neck: Supple. No JVD. No masses. Central trachea. Chest: Clear to auscultation. No wheezing. No rales. Abdomen: Soft, slightly distended. Positive bowel sounds. There is a dressing in the middle of the abdomen with no signs of infection or bleeding. There is an ostomy on the left side of the abdomen that is working fine. It has some stool inside. Neurological: The patient is awake. She is oriented. She is alert. LABORATORY DATA: WBC 9.6, hemoglobin 9.9, hematocrit 21.8, platelets 274,000. Sodium 142, potassium 3.5, chloride 108, bicarbonate 24, BUN 5, creatinine 1.1, glucose 93, calcium 8.4. ASSESSMENT AND PLAN: 1. Sepsis on presentation secondary to intra-abdominal infection with abscess formation. 2. Complicated sigmoid diverticulitis with abscess formation, status post sigmoid colectomy with end colostomy, drainage of the intra-abdominal abscess, and mobilization of the splenic flexure by Dr. Argueta, postoperative day #5. 3. Bacteremia due to Staphylococcus sanguineous, followed by Dr. Banerjee. Continue with antibiotics. 4. Hypertension, stable. 5. Acute kidney injury, stable. 6. Electrolyte abnormalities, including hypokalemia. Today, the potassium level is normal. 7. Uterine fibroid with bilateral ovarian cyst noted on images. Patient advised to follow up with Obstetrics/Gynecology. 8. Physical deconditioning. Continue with therapy. cc: Darrion Burgess MD
--- NOTE | 2019-08-29 12:53 | INFECTIOUS DISEASE PROGRESS NO ---
DATE: 08/29/2019 PRESENT ILLNESS: The patient is status post sigmoid colectomy with end colostomy and drainage of a diverticular abscess. She also has a streptococcal bacteremia. From the patient's abdomen at surgery, E. Coli and Bacteroides were isolated. MEDICATIONS: This is the 9th day of treatment with Zosyn. PHYSICAL EXAMINATION: Vital Signs: Temperature is 98.2 degrees, pulse 83, respirations 17, and blood pressure 152/77. General: Patient looks much better today. She is in better spirits. She is eating and moving around. Head/eyes/ears/nose/throat: She can hear my spoken words and see near objects. She does not have any white coating on her tongue. Neck: No stiffness. Lungs: Clear to auscultation. Cardiovascular: Heart rate is regular. Abdomen: Soft. It was not tender to light palpation. The patient's Fernando-Barroso drain has been removed. The patient has a functional colostomy. The patient's incision is intact. Neurologic: Patient is alert. We can move her extremities. As mentioned earlier, she is able to sit up in a chair and walk. LABORATORY AND X-RAY: There is no new radiographic study. CBC for today shows a white count of 9690, hemoglobin 8.9, platelet count 274,000, and creatinine is 1.1. GFR is greater than 60. ASSESSMENT AND PLAN: I plan to continue Zosyn for the patient's streptococcal bacteremia, and her Escherichia coli and Bacteroides abdominal infection, and also treatment of her diverticular abscess. COMORBIDITIES: Cigarette smoking, alcohol consumption, and use of marijuana. cc: Juancarlos Banerjee MD
[2019-08-29] MEDS: PATIENT'S OWN MED PO SCH ×2 (13:06→20:27)
[2019-08-29] MEDS: LOVENOX SUBQ SCH (18:29)
--- NOTE | 2019-08-29 20:38 | GENERAL SURGERY PROGRESS NOTE ---
DATE: 08/29/2019 SUBJECTIVE: Her bowels are functioning. She is tolerating a diet. No fevers. No tachycardia. OBJECTIVE: Vital signs: Blood pressure is 152/77. General: She is alert. Abdomen: Soft. Incisions intact. Stool in her ostomy bag. MARJORIE drain serosanguineous. LABORATORY DATA: White count is normal at 9, hematocrit is 28. Creatinine is down to 1.1. ASSESSMENT AND PLAN: This is a 54-year-old female status post Rose procedure. She is not really mobilizing very well and discussed the importance of this. Otherwise, her wound seems to be healing well. Her ostomy is functioning. I have removed her drain. We will continue to follow her along. We can advance her diet. It would be reasonable in the near future to transition to oral antibiotics. cc: Dorian Argueta MD
[2019-08-30] MEDS: ZOSYN 4.5 GM in NS 100 ML IV SCH ×4 (03:33→20:14)
[2019-08-30 08:14] LABS: HEMATOCRIT 29.2 % (37.0-47.0); HEMOGLOBIN 9.3 g/dL (12.0-16.0)
[2019-08-30 08:29] LABS: CALCIUM 8.7 mg/dL (8.8-10.2); CREATININE 1.2 mg/dL (0.5-0.9); POTASSIUM 3.4 mmol/L (3.5-5.1)
[2019-08-30] MEDS: PATIENT'S OWN MED PO SCH ×2 (08:31→20:16)
[2019-08-30] MEDS: PROTONIX IV SCH ×2 (08:32→09:33)
[2019-08-30] MEDS: SODIUM CHLORIDE 0.9% INJ SCH (08:32)
--- NOTE | 2019-08-30 14:16 | PROGRESS NOTE ---
DATE: 08/30/2019 SUBJECTIVE: No acute events overnight. She seems to be stable. Vital signs are good except for high blood pressure. I will start this patient on amlodipine to see how she does. Hopefully, she can be discharged soon. I will wait for Surgery Department's recommendations. OBJECTIVE: Vital Signs: Temperature 98.5 degrees, pulse 75, respiratory rate 16, blood pressure 173/85, oxygen saturation 97% on room air. HEENT: Head normocephalic. No trauma. Neck: Supple. No JVD. No masses. Central trachea. Chest: Clear to auscultation. No wheezing. No rales. Abdomen: Soft. Slightly distended. Positive bowel sounds. There is a dressing in the midline of the abdomen with no signs of infection or bleeding. There is an ostomy on the left side of the abdomen that is working. It has some stool inside. Extremities: No edema. No clubbing. No cyanosis. Neurological: The patient is awake and alert. She is oriented. She does have generalized weakness. LABORATORY: Hemoglobin 9.3, hematocrit 29.2. Sodium 143, potassium 3.4, chloride 106, bicarbonate 27, BUN 5, creatinine 1.2, glucose 92, calcium 8.7. ASSESSMENT AND PLAN: 1. Sepsis on presentation secondary to intra-abdominal infection with abscess formation, resolved. 2. Complicated sigmoid diverticulitis with abscess formation, status post sigmoid colectomy with end colostomy, drainage of the intra-abdominal abscess, and mobilization of the splenic flexure by Dr. Argueta, postoperative day #6. She seems to be better. She is tolerating p.o., ambulating, and having some liquid bowel movements. 3. Bacteremia due to Staphylococcus sanguineous. Followed by Dr. Banerjee. Continue with antibiotics. 4. Hypertension, stable. 5. Acute kidney injury, stable. 6. Electrolyte abnormalities. Stable now. 7. Uterine fibroid with bilateral ovarian cyst noted on images. Patient advised to follow up with EVENT TECHNICIAN. 8. Physical deconditioning. Continue physical therapy. cc: Darrion Burgess MD
[2019-08-30] MEDS: MYCOSTATIN SUSP PO SCH ×3 (14:36→20:16)
[2019-08-30] MEDS: LOVENOX SUBQ SCH ×2 (14:36→15:45)
[2019-08-30] MEDS: NORVASC PO SCH (14:36)
--- NOTE | 2019-08-30 14:58 | INFECTIOUS DISEASE PROGRESS NO ---
DATE: 08/30/2019 PRESENT ILLNESS: Ms. Garcia has had a sigmoid colectomy with end colostomy and drainage of a diverticular abscess. She is also being treated for a streptococcal bacteremia, with an abdominal growth of Escherichia coli and Bacteroides. The patient also has an oral candidiasis. MEDICATIONS: She is receiving Zosyn 4.5 g IV every 6 hours. Based on her sterile blood cultures today is day 3 of treatment for her bacteremia. PHYSICAL EXAMINATION: Vital Signs: Temperature is 98.5 degrees, pulse rate 75, respiratory rate 16, blood pressure 173/85, O2 saturation is 97% on room air. General: This is a somewhat ill- appearing, middle-aged female. She is sitting up in the chair currently in no acute distress. HEENT: Atraumatic, normocephalic. Oral mucous membranes are pink and mouth moist with a white coating noted to her tongue. Conjunctiva are pale. Neck: Supple. Trachea is midline. Cardiovascular: Heart rate is regular. S1-S2 noted. Respiratory: Lung sounds are bilaterally clear to auscultation. No work of breathing is noted. Abdomen: Soft and tender to palpation. There are shi in place to the midline abdominal incision with a small amount of bloody drainage noted to the middle of the incision. There is a colostomy in place with liquid brown stool noted in the bag. Neurologic: She is awake, alert, and oriented. Able to move around with assistance. LABORATORY AND X-RAY: No white blood cell count today but her hemoglobin is 9.3, creatinine is 1.2. GFR 57. Her blood culture grew 1/2 Streptococcus sanguis. Abdominal fluid cultures grew Escherichia coli and Bacteroides. No imaging reports today. ASSESSMENT AND PLAN: Ms. Garcia is being treated for streptococcal bacteremia as well as Escherichia coli and Bacteroides that were isolated from abdominal fluid cultures, with a diverticular abscess. Based on her sterile blood cultures, today is day 3 of treatment for the bacteremia, but she may need longer for treatment of the abdominal wound. For now, we will continue the Zosyn as ordered. When she is ready to be discharged, the plan will be to send her home on Levaquin and Flagyl by mouth. We will go ahead and order nystatin swish and swallow for the oral candidiasis. These plans have been discussed with and recommended by Dr. Banerjee. COMORBIDITIES: For Mr. Garcia include cigarette smoking, and occasional marijuana use. There is also an acute kidney injury. Dictated by KAILA Lima for Juancarlos Banerjee MD cc: Juancarlos Banerjee MD [facility]
[2019-08-30] MEDS: MORPHINE IV PRN (18:01)
--- NOTE | 2019-08-30 20:42 | GENERAL SURGERY PROGRESS NOTE ---
DATE: 08/30/2019 SUBJECTIVE: She feels well. She is ambulating. She is tolerating her diet. She is voiding and pain controlled. Her ostomy is functioning. She had no fevers, no tachycardia. OBJECTIVE: Blood pressure 130/70. Her abdomen is soft. Incision intact. Ostomy: Has stool in the bag and appears viable. Hematocrit stable at 29. Creatinine is 1.2. White count was normal yesterday. ASSESSMENT AND PLAN: 54-year-old female status post Rose's procedure for perforated diverticulitis. I think it would be reasonable to switch her to oral antibiotics and let her go home tomorrow. We can see her within the next week to remove her shi. cc: Dorian Argueta MD
[2019-08-31] MEDS: ZOSYN 4.5 GM in NS 100 ML IV SCH ×3 (02:57→14:28)
[2019-08-31 08:36] LABS: AGAP 13; BUN 5 mg/dL (8-22); CALCIUM 8.2 mg/dL (8.8-10.2); CHLORIDE 105 mmol/L (98-107); COSMO 282; CREATININE 1.1 mg/dL (0.5-0.9); ESTIMATED GFR > 60; GLUCOSE 92 mg/dL (70-104); MAGNESIUM 1.7 mg/dL (1.5-2.7); POTASSIUM 3.4 mmol/L (3.5-5.1); SODIUM 143 mmol/L (136-145); TCO2 25 mmol/L (25-35)
[2019-08-31 08:41] VITALS: BP 169/91
[2019-08-31] MEDS: PATIENT'S OWN MED PO SCH (09:22)
[2019-08-31] MEDS: NORVASC PO SCH (09:23)
[2019-08-31] MEDS: PROTONIX IV SCH (09:23)
[2019-08-31] MEDS: SODIUM CHLORIDE 0.9% INJ SCH (09:23)
[2019-08-31] MEDS: MYCOSTATIN SUSP PO SCH ×2 (09:23→14:28)
--- NOTE | 2019-08-31 11:57 | GENERAL SURGERY PROGRESS NOTE ---
DATE: 08/31/2019 SUBJECTIVE: Doing well. Ostomy is functioning. She has changed her bags. She is tolerating diet. She is voiding. She is ambulating. No fevers, no tachycardia. OBJECTIVE: Vital Signs: Blood pressure 169/91. Abdomen: Her abdomen is soft, appropriately tender. Ostomy has stool in the bag and her incision is intact. LABS: Creatinine is 1.1. Her white count was normal, over 4. ASSESSMENT/PLAN: A 54-year-old female status post Rose's procedure. Plan is let her go home. We will see her in a week and take her shi out. Otherwise, she has got what she needs for ostomy care and her son that is attentive and takes care of her. She has been transitioned to oral antibiotics. cc: Dorian Argueta MD
--- NOTE | 2019-08-31 19:47 | INFECTIOUS DISEASE PROGRESS NO ---
DATE: 08/31/2019 SUBJECTIVE: The patient had a sigmoid colectomy and drainage of a diverticular abscess. She is being discharged today. The patient had a streptococcal bacteremia and from her abdomen, E coli and Bacteroides were isolated. The patient is going home on the following medications: Levaquin 500 mg daily for 14 days and Flagyl 500 mg every 8 hours for 14 days. Some of the side effects of the antibiotics, including rash, diarrhea, seizures, tendon problems and avoid drinking all alcoholic beverages while on Flagyl has been explained to the patient who agrees with treatment. The patient will be followed up by Dr. Argueta and myself. I have requested that the patient come to my office in 2 weeks at which time she will be examined and a CBC and a creatinine will be drawn. We will discuss with Dr. Argueta when and if he wants to repeat a CT scan. cc: Juancarlos Banerjee MD
--- NOTE | 2019-09-01 14:35 | DISCHARGE SUMMARY ---
ADMISSION DATE: 08/21/2019 DISCHARGE DATE: 08/31/2019 DISCHARGE DIAGNOSES: 1. Sepsis on presentation secondary to intra-abdominal infection with abscess formation. 2. Complicated sigmoid diverticulitis with abscess formation, status post sigmoid colectomy with end colostomy, drainage of the intra-abdominal abscess and mobilization of the splenic flexure, postoperative day #7. 3. Bacteremia due to Staphylococcus sanguinis. 4. Hypertension. 5. Acute kidney injury. 6. Electrolyte abnormalities. 7. Uterine fibroid with bilateral ovarian cyst noted on images. The patient advised to follow up with [facility]. 8. Physical deconditioning. Patient refused to go to a rehab center. PROCEDURES PERFORMED: Chest x-ray dated 08/21/2019, impression is stable chest. Abdomen and pelvis CT scan dated 08/21/2019, impression is sigmoid diverticulitis with abscess, fibroid uterus with bilateral ovarian cyst. Abdomen and pelvis CT scan dated 08/23/2019, interval modest increase in size of the pericolonic abscess as compared with the previous study, development of mild edema and atelectasis at the lung bases and trace effusions. HOSPITAL COURSE: A 54-year-old female with a past medical history of hypertension, chronic pain. Apparently, he has been having some days with stomach pain and generalized abdominal discomfort, primarily in the left upper quadrant. She was admitted on 08/21/2019. She has been weak and no energy. The day before admission, she started having some nausea and vomiting. She states that she is still having some daily bowel movements. No fever, no chills. Abdomen and pelvis CT scan showed a sigmoid diverticulitis with abscess. It is a large pericolic abscess posterior to the anterior loop of the sigmoid, measuring 6.3 cm in dimension. She has been admitted, treated for diverticulitis with antibiotics. We consulted Surgery who did a procedure on 08/24/2019, open sigmoid colectomy with end colostomy, drainage of intra-abdominal abscess, and mobilization of the splenic flexure. After the procedure, the patient was improving on a daily basis slowly. Her main issue was abdominal pain, but she started tolerating some liquids and we have been advancing these slowly. We had also an abdominal culture that showed Escherichia coli and Bacteroides. Blood culture came back positive as well with Streptococcus sanguis. Infectious Disease Department has been consulted. We repeated the blood culture on 08/27/2019, and they are both negative. She will be discharged today. She refused to go to rehab. The patient seems to be stable. Follow up with Surgery Department as an outpatient on 09/15/2019 at 2 p.m., and also follow up with Dr. Juancarlos Banerjee in 2 weeks. Follow up with her primary care provider on 09/07/2019, Dr. Garcia. At the moment of discharge, the patient was in a stable medical condition, tolerating p.o. and ambulating mostly with assistance, but she was strong enough to stand up by herself. PHYSICAL EXAMINATION: Vital Signs: Temperature 97.5 degrees, pulse 89, respiratory rate 16, blood pressure 169/91, oxygen saturation 100% on room air. HEENT: Head normocephalic. No trauma. Neck: Supple. No JVD. No masses. Central trachea. Chest: Clear to auscultation. No wheezing. No rales. Abdomen: Soft. Slightly distended. Generalized tenderness to palpation. She has a midline scar with no signs of infection. There is an ostomy on the left side of the abdomen that is working fine. She has some stools inside. Extremities: No edema, no clubbing, no cyanosis. Neurological: The patient is awake and alert. She is oriented. She is following commands. LABORATORY DATA: Sodium 143, potassium 3.4, chloride 105, bicarbonate 25, BUN 5, creatinine 1.1, glucose 92, calcium 8.2, magnesium 1.7. DISCHARGE MEDICATIONS: 1. Amlodipine 5 mg p.o. daily. 2. Soma 250 mg p.o. b.i.d. 3. Levofloxacin 500 mg p.o. daily. 4. Lisinopril 10 mg p.o. daily. 5. Flagyl 500 mg p.o. every 8 hours. 6. Tramadol 50 mg p.o. every 8 hours as needed for pain. The patient has been instructed not to drive if she is going to take the medications for pain. TIME DISCHARGING THIS PATIENT: 35 minutes. cc: Darrion Burgess MD
== END 2019-08-31 17:01 | disposition home or self-care (01) | DRG 853 ==
LOC: P.ED 02:13 → 3N 06:33 → SUATTDRO 06:33 → 3N 08-25 16:45
PROVIDERS: ATTEND Internal Medicine
PROC: GE.COLS (2019-08-24 15:28)